=== PATIENT | male | born 1990 | race African-American/Black ===

== ENCOUNTER 2021-04-07 02:58 | Inpatient (IN) | payer OTHER, SELFPAY ==
[~2021-04-07 02:58] MED LIST: Calcium Chloride 1 GM/10 ML Abboject SYRINGE ONE; PHENYLEPHRINE-NS 100 MCG/ML 10 ML SYRINGE ONE; Rocuronium Bromide 10 MG/ML (10ML VIAL) ONE; Succinylcholine 200 MG/10 ml SYRINGE FS ONE; Vecuronium 10 MG VIAL ONE
[2021-04-07] MEDS ORDERED: CEFAZOLIN 1 GM VIAL ONE ×2 (03:03→03:06)
[2021-04-07] MEDS ORDERED: Sterile Water 10 ML ONE ×2 (03:03→03:07)
[2021-04-07] MEDS ORDERED: Ondansetron PF 4 MG/2 ML Vial ONE ×2 (03:06→03:25)
[2021-04-07] MEDS ORDERED: Boostrix 0.5 ML (Tdap) VIAL ONE (03:06)
[2021-04-07] MEDS ORDERED: Fentanyl 100 MCG/2 ML VIAL ONE (03:09)
[2021-04-07 03:21] LABS: #Basophils 0.1 thou/uL (0.0-0.2); #Eosinphils 0.2 thou/uL (0.0-0.7); #Monocytes 0.8 thou/uL (0.11-0.59); #Neutrophils 5.4 thou/uL (1.40-6.50); %Basophils 1.2 % (0.0-1.0); %Eosinophils 1.7 % (0.0-10.0); %Lymphocytes 43.2 % (21.0-51.0); %Monocytes 7.1 % (0.0-10.0); %Neutrophils 46.9 % (42.0-75.0); Hemoglobin 14.9 g/dL (14.0-18.0); Mean Corpuscular HGB CONC 32.7 g/dL (32.0-36.0); Mean Corpuscular Hemoglobin 28.2 pg (27.0-31.0); Mean Corpuscular Volume 86.3 fL (78.0-98.0); Mean Platelet Volume 7.5 fL (7.4-10.4); Platelet Count 203 thou/uL (130-400); RBC Distribution Width 13.5 % (11.5-14.5); Red Blood Cell (RBC) Count 5.26 mill/uL (4.70-6.10); White Blood Cell (WBC) Count 11.6 thou/uL (4.8-10.8)
[2021-04-07] MEDS ORDERED: Midazolam HCl 5 mg/5 ml Vial ONE (03:24)
[2021-04-07] MEDS ORDERED: Fentanyl 250 MCG/5 ML VIAL ONE (03:24)
[2021-04-07] MEDS ORDERED: Sodium Bicarb 50 MEQ/50 ML Abboject 8.4% SYRINGE ONE (03:25)
[2021-04-07] MEDS ORDERED: Calcium Chloride 1 GM/10 ML Abboject SYRINGE ONE (03:25)
[2021-04-07] MEDS ORDERED: Ketamine 50 MG/ML (10ML VIAL) ONE (03:25)
[2021-04-07] MEDS ORDERED: Norepinephrine 4 MG/4 ML VIAL ONE (03:25)
[2021-04-07] MEDS ORDERED: Phenylephrine 10 MG/ML VIAL ONE ×2 (03:25)
[2021-04-07 03:35] LABS: Prothrombin Time 13.7 sec (12.0-14.7)
[2021-04-07 03:37] LABS: PTT 22.7 sec (22.9-36.1)
[2021-04-07 03:40] LABS: ALT (SGPT) 13 U/L (8-55); AST (SGOT) 20 U/L (5-34); Albumin 3.9 g/dL (3.5-5.0); Alcohol 146 mg/dL (Less than 10); Alkaline Phosphatase 56 U/L (40-110); Anion Gap 18 mmol/L (10-20); BUN (Urea Nitrogen) 11 mg/dL (8.9-20.6); Bilirubin, Total 0.2 mg/dL (0.2-1.2); Calc. Creatinine Clearance 0 mL/min (70-130); Calcium 8.5 mg/dL (7.8-10.44); Carbon Dioxide 19 mmol/L (22-29); Chloride 103 mmol/L (98-107); Globulin 3.3 g/dL (2.4-3.5); Glucose 135 mg/dL (70-105); Lipase 28 U/L (8-78); Protein, Total 7.2 g/dL (6.0-8.3); Sodium 137 mmol/L (136-145)
[2021-04-07] MEDS ORDERED: Albumin 5% 500 ML ONE (04:03)
[2021-04-07 04:22] LABS: SARS-CoV-2 NAA Rapid Test Not Detected (NotDetected)
[2021-04-07] MEDS ORDERED: Sodium Chloride 0.9% 30 ML ONE (04:23)
[2021-04-07] MEDS ORDERED: Dextrose 5% in Water 1,000 ML IV PRN (06:05)
[2021-04-07] MEDS ORDERED: hydrALAZINE 20 MG/ML VIAL SLOW IVP PRN (06:05)
[2021-04-07] MEDS ORDERED: Rocuronium Bromide 50 MG/5 ML VIAL ONE (06:22)
[2021-04-07] MEDS ORDERED: Iothalamate Meglumine 60% 50 ML VIAL FS ONE ×2 (06:25→08:25)
[2021-04-07] MEDS ORDERED: Piperacillin/Tazobactam 3.375 GM in Sodium Chloride 0.9% 100 ML IVPB SCH ×2 (06:30→14:00)
[2021-04-07] MEDS ORDERED: Morphine 2 MG/ML VIAL SLOW IVP PRN (06:30)
[2021-04-07] MEDS ORDERED: DISCONTINUE PREVIOUS NARCOTIC PAIN MEDICATIONS AND BENZODIAZEPINES FS SCH (06:30)
[2021-04-07] MEDS ORDERED: Propofol BOLUS 1,000 MG/100 ML VIAL IV PRN (06:30)
[2021-04-07] MEDS ORDERED: Fentanyl BOLUS 250 ML IVPB PRN (06:30)
[2021-04-07] MEDS ORDERED: Vecuronium 10 MG VIAL ONE (08:13)
[2021-04-07] MEDS ORDERED: Sterile Water 0 ML ONE (08:37)
[2021-04-07] MEDS ORDERED: Fentanyl CADD 100 ML ONE ×2 (09:15→23:37)
[2021-04-07] MEDS: Fentanyl CADD 100 ML IV SCH (09:19)
[2021-04-07] MEDS: Propofol 1,000 MG/100 ML VIAL IV PRN ×4 (09:19→18:23)
[2021-04-07 09:59] LABS: Lactic Acid 4.8 mmol/L (0.5-2.2)
[2021-04-07] MEDS: Sodium Chloride 0.9% 1,000 ML IV SCH ×4 (10:29→23:53)
[2021-04-07 10:31] LABS: Amphetamine Not Detected (NotDetected); Bacteria/HPF None Seen HPF (None Seen); Barbiturates Screen Not Detected (NotDetected); Benzodiazepine Screen Not Detected (NotDetected); Bilirubin Negative (Negative); Blood, Urine 3+ (Negative); Clarity Turbid (Clear); Cocaine Metabolite Screen Not Detected (NotDetected); Glucose, Urine (Dipstick) Normal (Negative); Ketone, Urine Negative (Negative); Leukocyte Negative Leu/uL (Negative); Methadone Not Detected (NotDetected); Methamphetamine Not Detected (NotDetected); Nitrite Negative (Negative); Opiate Screen Not Detected (NotDetected); Oxycodone Screen Not Detected (NotDetected); Phencyclidine (PCP) Not Detected (NotDetected); Protein, Urine (Dipstick) 20 mg/dL (Neg-Trace); RBC/HPF Greater than 50 HPF (0-3); Specific Gravity, Urine 1.032 (1.002-1.036); Squamous Epithelial None Seen HPF (0-3); THC/Cannabinoid Screen Detected (NotDetected); Tricyclic Screen Not Detected (NotDetected); Urobilinogen Normal mg/dL (Less than 2)
[2021-04-07 10:59] LABS: Actual Bicarbonate (HCO3a) 22.6 mEq/L (22-28); Base Excess (BEa) -3.6 mEq/L (-2.0 to +3.0); CO2 Tension 44.8 mmHg (35.0-45.0); Calcium, Ionized (arterial) 1.11 mmol/L (1.12-1.30); Carboxyhemoglobin (COHb) 1.6 gm% (0.0-3.0); Hemoglobin (Hb) 16.1 g/dL (14.0-18.0); O2 Tension (PaO2), arterial 118.4 mmHg (80.0-100.0); Potassium - ABG Lab 4.02 mmol/L (3.70-5.30); pH, Arterial 7.32 (7.35-7.45)
[2021-04-07 11:02] LABS: Puncture Site LRA
[2021-04-07 11:18] LABS: Hemoglobin 15.8 g/dL (14.0-18.0); Mean Corpuscular HGB CONC 32.2 g/dL (32.0-36.0); Mean Corpuscular Hemoglobin 28.3 pg (27.0-31.0); Mean Corpuscular Volume 87.8 fL (78.0-98.0); Platelet Count 160 thou/uL (130-400); RBC Distribution Width 13.9 % (11.5-14.5); Red Blood Cell (RBC) Count 5.59 mill/uL (4.70-6.10); White Blood Cell (WBC) Count 2.4 thou/uL (4.8-10.8)
[2021-04-07 11:19] LABS: Band 24 % (5-11); Lymphocytes 47 % (21-51); MDiff Complete? YES; Metamyelocyte 1 % (0-0); Monocytes 3 % (0-10); Neutrophil 24 % (42-75); Reactive Lymphocytes 1 % (0-10)
[2021-04-07] MEDS ORDERED: Calcium Chloride 1 GM/10 ML Abboject SYRINGE IVP SCH (11:30)
[2021-04-07 11:38] LABS: Anion Gap 15 mmol/L (10-20); BUN (Urea Nitrogen) 11 mg/dL (8.9-20.6); Calc. Creatinine Clearance 0 mL/min (70-130); Calcium 8.8 mg/dL (7.8-10.44); Carbon Dioxide 20 mmol/L (22-29); Chloride 108 mmol/L (98-107); Glucose 108 mg/dL (70-105); Magnesium 1.7 mg/dL (1.6-2.6); Phosphorus 3.9 mg/dL (2.3-4.7); Potassium 4.3 mmol/L (3.5-5.1); Sodium 139 mmol/L (136-145)
[2021-04-07] MEDS ORDERED: Magnesium Sulfate 3 GM in Sodium Chloride 0.9% 100 ML IVPB SCH (12:00)
[2021-04-07 12:02] LABS: Hemoglobin 16.2 g/dL (14.0-18.0); Mean Corpuscular HGB CONC 32.4 g/dL (32.0-36.0); Mean Corpuscular Hemoglobin 28.3 pg (27.0-31.0); Mean Corpuscular Volume 87.4 fL (78.0-98.0); Mean Platelet Volume 7.6 fL (7.4-10.4); Platelet Count 158 thou/uL (130-400); Red Blood Cell (RBC) Count 5.71 mill/uL (4.70-6.10); White Blood Cell (WBC) Count 3.2 thou/uL (4.8-10.8)
[2021-04-07] MEDS: Piperacillin/Tazobactam 3.375 GM in Sodium Chloride 0.9% 100 ML IVPB SCH ×2 (12:29→20:40)
[2021-04-07] MEDS: Lorazepam 2 MG/ML VIAL SLOW IVP PRN ×2 (12:55→22:36)
[2021-04-07] MEDS: Famotidine/PF 20 mg/2ml Vial SLOW IVP SCH ×2 (13:00→20:40)
[2021-04-07] MEDS ORDERED: Acetaminophen 650 MG Suppository PR PRN (13:39)
[2021-04-07] MEDS: Potassium Chloride 20 MEQ in Premix Bag 1 BAG IVPB SCH ×2 (14:21→14:45)
[2021-04-07] MEDS ORDERED: Sodium Chloride 0.9% 500 ML IV SCH (16:30)
[2021-04-07] MEDS ORDERED: Sodium Chloride 0.9% 1,000 ML IV SCH ×3 (19:39→23:15)
[2021-04-07 20:17] LABS: Mean Corpuscular HGB CONC 31.6 g/dL (32.0-36.0); Mean Corpuscular Hemoglobin 27.9 pg (27.0-31.0); Mean Corpuscular Volume 88.3 fL (78.0-98.0); Mean Platelet Volume 8.2 fL (7.4-10.4); Platelet Count 132 thou/uL (130-400); RBC Distribution Width 14.2 % (11.5-14.5); Red Blood Cell (RBC) Count 5.38 mill/uL (4.70-6.10); White Blood Cell (WBC) Count 4.5 thou/uL (4.8-10.8)
[2021-04-07 20:23] LABS: Lactic Acid 3.6 mmol/L (0.5-2.2)
[2021-04-07 20:36] LABS: Anion Gap 14 mmol/L (10-20); BUN (Urea Nitrogen) 20 mg/dL (8.9-20.6); Calc. Creatinine Clearance 96 mL/min (70-130); Calcium 8.1 mg/dL (7.8-10.44); Carbon Dioxide 20 mmol/L (22-29); Chloride 113 mmol/L (98-107); Glucose 106 mg/dL (70-105); MDiff Complete? YES; Magnesium 2.2 mg/dL (1.6-2.6); Phosphorus 3.5 mg/dL (2.3-4.7); Potassium 4.6 mmol/L (3.5-5.1); Sodium 142 mmol/L (136-145)
[2021-04-07 20:37] LABS: Band 17 % (5-11); Lymphocytes 40 % (21-51); Monocytes 8 % (0-10); Neutrophil 35 % (42-75)
[2021-04-07] MEDS ORDERED: Sodium Phosphate 15 MMOL in Sodium Chloride 0.9% 250 ML 250 ML IVPB SCH (21:00)
[2021-04-07] MEDS ORDERED: Hydrocortisone Sod Succ/PF 100 mg/2 ml Vial IVP SCH (23:15)
[2021-04-07] MEDS ORDERED: Dexmedetomidine 1,000 MCG in Sodium Chloride 0.9% 250 ML 240 ML IVPB SCH (23:15)
[2021-04-08] MEDS: Fentanyl CADD 100 ML IV SCH ×3 (00:09→23:17)
[2021-04-08 01:24] LABS: Troponin I Less than 0.010 ng/mL (< 0.028)
[2021-04-08] MEDS ORDERED: Norepinephrine 8 MG/0.9% NS 250 ML ONE (03:00)
[2021-04-08] MEDS ORDERED: Sodium Chloride 0.9% 1,000 ML IV SCH ×2 (03:45→04:45)
[2021-04-08] MEDS: Sodium Chloride 0.9% 1,000 ML IV SCH ×3 (03:57→15:01)
[2021-04-08] MEDS: Piperacillin/Tazobactam 3.375 GM in Sodium Chloride 0.9% 100 ML IVPB SCH ×3 (04:47→21:17)
[2021-04-08] MEDS: Lorazepam 2 MG/ML VIAL SLOW IVP PRN (04:53)
[2021-04-08 05:17] LABS: Lactic Acid 4.7 mmol/L (0.5-2.2)
[2021-04-08 05:29] LABS: Anion Gap 13 mmol/L (10-20); BUN (Urea Nitrogen) 23 mg/dL (8.9-20.6); Calc. Creatinine Clearance 91 mL/min (70-130); Calcium 6.2 mg/dL (7.8-10.44); Carbon Dioxide 18 mmol/L (22-29); Chloride 115 mmol/L (98-107); Glucose 86 mg/dL (70-105); Magnesium 1.7 mg/dL (1.6-2.6); Potassium 6.9 mmol/L (3.5-5.1); Sodium 139 mmol/L (136-145)
[2021-04-08 05:32] LABS: CK (CPK) 4172 U/L (30-200)
[2021-04-08] MEDS ORDERED: Calcium Gluconate 4.6 MEQ in Sodium Chloride 0.9% 100 ML IVPB ONE (05:34)
[2021-04-08] MEDS ORDERED: Calcium Gluc 4.6 MEQ/10 ML (100 MG/ML) SLOW IVP SCH (05:45)
[2021-04-08] MEDS ORDERED: Insulin Regular 300 UNITS/3 ML VIAL IVP SCH (05:45)
[2021-04-08] MEDS ORDERED: Dextrose 50% Abboject 50 ML SYRINGE SLOW IVP SCH (05:45)
[2021-04-08] MEDS: Norepinephrine 8 MG/0.9% NS 250 ML IVPB SCH ×4 (06:10→19:09)
[2021-04-08 08:15] LABS: Band 37 % (5-11); Hemoglobin 11.3 g/dL (14.0-18.0); Lymphocytes 39 % (21-51); MDiff Complete? YES; Mean Corpuscular HGB CONC 30.4 g/dL (32.0-36.0); Mean Corpuscular Hemoglobin 27.5 pg (27.0-31.0); Mean Corpuscular Volume 90.4 fL (78.0-98.0); Mean Platelet Volume 8.4 fL (7.4-10.4); Metamyelocyte 6 % (0-0); Monocytes 2 % (0-10); Neutrophil 15 % (42-75); Platelet Count 102 thou/uL (130-400); Platelet Morphology Comment Appears Decreased; Reactive Lymphocytes 1 % (0-10); Red Blood Cell (RBC) Count 4.12 mill/uL (4.70-6.10); White Blood Cell (WBC) Count 6.2 thou/uL (4.8-10.8)
[2021-04-08] MEDS: Dextrose 50% Abboject 50 ML SYRINGE SLOW IVP PRN ×2 (08:20→16:29)
[2021-04-08 09:17] LABS: Anion Gap 12 mmol/L (10-20); BUN (Urea Nitrogen) 26 mg/dL (8.9-20.6); Calc. Creatinine Clearance 83 mL/min (70-130); Calcium 6.3 mg/dL (7.8-10.44); Carbon Dioxide 19 mmol/L (22-29); Chloride 114 mmol/L (98-107); Glucose 105 mg/dL (70-105); Magnesium 1.9 mg/dL (1.6-2.6); Phosphorus 3.1 mg/dL (2.3-4.7); Potassium 5.5 mmol/L (3.5-5.1); Sodium 139 mmol/L (136-145)
[2021-04-08] MEDS ORDERED: Iopamidol-370 76% 500 ML 1 ML ONE (09:30)
[2021-04-08] MEDS ORDERED: Fentanyl CADD 100 ML ONE ×2 (11:02→23:14)
[2021-04-08] MEDS: Famotidine/PF 20 mg/2ml Vial SLOW IVP SCH ×2 (11:04→21:17)
[2021-04-08] MEDS: Sodium Bicarbonate 150 MEQ in Dextrose 5% in Water 1,000 ML IV SCH ×2 (11:04→17:53)
[2021-04-08] MEDS ORDERED: Lidocaine 1% w/Epinephrine 1:100K 20 ML VIAL ONE ×2 (11:41→11:43)
[2021-04-08 12:57] LABS: Mean Corpuscular Hemoglobin 27.9 pg (27.0-31.0); Mean Platelet Volume 8.2 fL (7.4-10.4); Platelet Count 121 thou/uL (130-400); RBC Distribution Width 14.2 % (11.5-14.5); White Blood Cell (WBC) Count 5.4 thou/uL (4.8-10.8)
[2021-04-08 15:01] LABS: Actual Bicarbonate (HCO3a) 15.4 mEq/L (22-28); Base Excess (BEa) -10.5 mEq/L (-2.0 to +3.0); CO2 Tension 34.3 mmHg (35.0-45.0); Calcium, Ionized (arterial) 0.87 mmol/L (1.12-1.30); Carboxyhemoglobin (COHb) 0.4 gm% (0.0-3.0); Hemoglobin (Hb) 12.4 g/dL (14.0-18.0); O2 Tension (PaO2), arterial 64.4 mmHg (80.0-100.0); Potassium - ABG Lab 5.29 mmol/L (3.70-5.30); pH, Arterial 7.27 (7.35-7.45)
[2021-04-08] MEDS: Propofol 1,000 MG/100 ML VIAL IV PRN (15:01)
[2021-04-08 15:06] LABS: Puncture Site Arterial Line
[2021-04-08 15:07] LABS: ALV-art Gradient 427.475 mmHg (0-20)
[2021-04-08] MEDS ORDERED: Calcium Chloride 1 GM/10 ML Abboject SYRINGE IVP SCH (15:15)
[2021-04-08 20:04] LABS: Hemoglobin 11.6 g/dL (14.0-18.0); Mean Corpuscular Hemoglobin 27.8 pg (27.0-31.0); Mean Corpuscular Volume 89.6 fL (78.0-98.0); Mean Platelet Volume 8.2 fL (7.4-10.4); Platelet Count 108 thou/uL (130-400); RBC Distribution Width 14.1 % (11.5-14.5); Red Blood Cell (RBC) Count 4.18 mill/uL (4.70-6.10); White Blood Cell (WBC) Count 5.8 thou/uL (4.8-10.8)
[2021-04-08 20:19] LABS: Phosphorus 2.7 mg/dL (2.3-4.7)
[2021-04-08 20:20] LABS: Lactic Acid 2.7 mmol/L (0.5-2.2)
[2021-04-08 20:22] LABS: Band 72 % (5-11); Hypochromia SLIGHT = 6-15 cells (100X) (0-5/hpf); Lymphocytes 10 % (21-51); MDiff Complete? YES; Metamyelocyte 6 % (0-0); Monocytes 1 % (0-10); Myelocyte 1 % (0-0); Neutrophil 5 % (42-75); Platelet Morphology Comment Appears Decreased; Polychromasia SLIGHT = 2-3 cells (100X) (0-2/hpf); Reactive Lymphocytes 5 % (0-10); Toxic Granulation SLIGHT; Vacuoles SLIGHT
[2021-04-08 20:25] LABS: Anion Gap 11 mmol/L (10-20); BUN (Urea Nitrogen) 21 mg/dL (8.9-20.6); Calc. Creatinine Clearance 113 mL/min (70-130); Calcium 7.5 mg/dL (7.8-10.44); Carbon Dioxide 19 mmol/L (22-29); Chloride 112 mmol/L (98-107); Glucose 91 mg/dL (70-105); Magnesium 1.8 mg/dL (1.6-2.6); Potassium 4.4 mmol/L (3.5-5.1); Sodium 138 mmol/L (136-145)
[2021-04-08 20:46] LABS: CK (CPK) 8871 U/L (30-200)
[2021-04-08] MEDS: Heparin 5,000 UNITS/ML VIAL SC SCH (21:17)
[2021-04-09] MEDS: Norepinephrine 8 MG/0.9% NS 250 ML IVPB SCH ×4 (00:02→14:50)
[2021-04-09 04:07] LABS: INR-International Normal Ratio 1.8; PTT 56.5 sec (22.9-36.1); Prothrombin Time 20.9 sec (12.0-14.7)
[2021-04-09 04:12] LABS: Lactic Acid 2.7 mmol/L (0.5-2.2)
[2021-04-09 04:19] LABS: Chloride 111 mmol/L (98-107); Potassium 4.2 mmol/L (3.5-5.1); Sodium 141 mmol/L (136-145)
[2021-04-09 04:20] LABS: Calcium 6.5 mg/dL (7.8-10.44); Glucose 108 mg/dL (70-105)
[2021-04-09 04:22] LABS: Carbon Dioxide 24 mmol/L (22-29)
[2021-04-09 04:24] LABS: Calc. Creatinine Clearance 144 mL/min (70-130); Phosphorus 2.3 mg/dL (2.3-4.7)
[2021-04-09 04:25] LABS: BUN (Urea Nitrogen) 17 mg/dL (8.9-20.6)
[2021-04-09 04:26] LABS: Magnesium 1.8 mg/dL (1.6-2.6)
[2021-04-09 04:30] LABS: Anion Gap 10 mmol/L (10-20)
[2021-04-09] MEDS: Piperacillin/Tazobactam 3.375 GM in Sodium Chloride 0.9% 100 ML IVPB SCH ×3 (04:36→20:32)
[2021-04-09] MEDS: Sodium Bicarbonate 150 MEQ in Dextrose 5% in Water 1,000 ML IV SCH (04:37)
[2021-04-09 04:53] LABS: Band 67 % (5-11); Eosinophils 3 % (0-10); Hemoglobin 10.9 g/dL (14.0-18.0); Lymphocytes 13 % (21-51); MDiff Complete? YES; Mean Corpuscular HGB CONC 29.8 g/dL (32.0-36.0); Mean Corpuscular Hemoglobin 26.5 pg (27.0-31.0); Mean Corpuscular Volume 88.8 fL (78.0-98.0); Metamyelocyte 5 % (0-0); Monocytes 3 % (0-10); Neutrophil 9 % (42-75); Platelet Count 103 thou/uL (130-400); Platelet Morphology Comment Appears Decreased; Red Blood Cell (RBC) Count 4.12 mill/uL (4.70-6.10); Vacuoles SLIGHT; White Blood Cell (WBC) Count 5.7 thou/uL (4.8-10.8)
[2021-04-09 04:56] LABS: CK (CPK) 8123 U/L (30-200)
[2021-04-09 07:49] LABS: Actual Bicarbonate (HCO3a) 22.7 mEq/L (22-28); Base Excess (BEa) -2.7 mEq/L (-2.0 to +3.0); CO2 Tension 41.4 mmHg (35.0-45.0); Calcium, Ionized (arterial) 0.97 mmol/L (1.12-1.30); Carboxyhemoglobin (COHb) 0.4 gm% (0.0-3.0); Hemoglobin (Hb) 11.1 g/dL (14.0-18.0); O2 Tension (PaO2), arterial 140.3 mmHg (80.0-100.0); Potassium - ABG Lab 3.97 mmol/L (3.70-5.30); pH, Arterial 7.36 (7.35-7.45)
[2021-04-09 07:52] LABS: Puncture Site Arterial Line
[2021-04-09] MEDS ORDERED: Magnesium 2 GM/50 ML 2 GM in Premix Bag 1 BAG IVPB SCH (08:00)
[2021-04-09] MEDS ORDERED: Calcium Chloride 1 GM/10 ML Abboject SYRINGE IVP SCH ×2 (08:30→09:45)
[2021-04-09] MEDS: Famotidine/PF 20 mg/2ml Vial SLOW IVP SCH (08:52)
[2021-04-09] MEDS: Enoxaparin Sodium 40 MG/0.4 ML SYRINGE SC SCH (08:53)
[2021-04-09] MEDS ORDERED: Enoxaparin Sodium 40 MG/0.4 ML SYRINGE SC SCH (09:00)
[2021-04-09] MEDS: Propofol 1,000 MG/100 ML VIAL IV PRN (09:18)
[2021-04-09] MEDS: Heparin 5,000 UNITS/ML VIAL SC SCH (09:25)
[2021-04-09] MEDS: Vasopressin 20 UNIT, Admixture Fee 1 EACH in Sodium Chloride 0.9% 50 ML IV SCH ×2 (11:20→19:27)
[2021-04-09] MEDS ORDERED: Fentanyl CADD 100 ML ONE ×2 (12:04→22:19)
[2021-04-09] MEDS: Sodium Chloride 0.9% 1,000 ML IV SCH ×2 (12:18→22:47)
[2021-04-09] MEDS: Fentanyl CADD 100 ML IV SCH ×2 (12:25→22:30)
[2021-04-09] MEDS ORDERED: SODIUM CHLORIDE IVPB SCH (21:45)
[2021-04-09] MEDS ORDERED: DEXMEDETOMIDINE IVPB SCH (21:45)
[2021-04-09] MEDS ORDERED: NACL IVPB SCH (21:45)
[2021-04-09] MEDS: Pantoprazole 40 MG VIAL IVP SCH (21:46)
[2021-04-09] MEDS: Ondansetron PF 4 MG/2 ML Vial IVP PRN (21:46)
[2021-04-10] MEDS: Norepinephrine 8 MG/0.9% NS 250 ML IVPB SCH ×2 (02:20→16:37)
[2021-04-10] MEDS ORDERED: Sodium Chloride 0.9% 1,000 ML IV SCH (03:30)
[2021-04-10] MEDS: Piperacillin/Tazobactam 3.375 GM in Sodium Chloride 0.9% 100 ML IVPB SCH ×2 (04:19→11:17)
[2021-04-10 04:24] LABS: Magnesium 1.6 mg/dL (1.6-2.6); Phosphorus 2.2 mg/dL (2.3-4.7)
[2021-04-10] MEDS: Vasopressin 20 UNIT, Admixture Fee 1 EACH in Sodium Chloride 0.9% 50 ML IV SCH ×3 (04:30→21:37)
[2021-04-10 04:40] LABS: CK (CPK) 4597 U/L (30-200)
[2021-04-10 04:44] LABS: ALT (SGPT) 761 U/L (8-55); AST (SGOT) 606 U/L (5-34); Albumin 2.1 g/dL (3.5-5.0); Alkaline Phosphatase 33 U/L (40-110); Anion Gap 9 mmol/L (10-20); BUN (Urea Nitrogen) 11 mg/dL (8.9-20.6); Bilirubin, Total 1.2 mg/dL (0.2-1.2); Calc. Creatinine Clearance 220 mL/min (70-130); Carbon Dioxide 26 mmol/L (22-29); Chloride 110 mmol/L (98-107); Globulin 1.8 g/dL (2.4-3.5); Glucose 99 mg/dL (70-105); Protein, Total 3.9 g/dL (6.0-8.3); Sodium 141 mmol/L (136-145)
[2021-04-10 05:25] LABS: Band 20 % (5-11); Eosinophils 3 % (0-10); Hemoglobin 9.2 g/dL (14.0-18.0); Lymphocytes 26 % (21-51); MDiff Complete? YES; Mean Corpuscular HGB CONC 30.9 g/dL (32.0-36.0); Mean Corpuscular Hemoglobin 27.6 pg (27.0-31.0); Mean Corpuscular Volume 89.5 fL (78.0-98.0); Mean Platelet Volume 8.3 fL (7.4-10.4); Monocytes 2 % (0-10); Myelocyte 1 % (0-0); Neutrophil 47 % (42-75); Platelet Count 100 thou/uL (130-400); Platelet Morphology Comment Appears Decreased; RBC Distribution Width 13.6 % (11.5-14.5); Red Blood Cell (RBC) Count 3.33 mill/uL (4.70-6.10); White Blood Cell (WBC) Count 5.5 thou/uL (4.8-10.8)
[2021-04-10] MEDS ORDERED: Potassium Phosphate 30 MMOL, Magnesium Sulfate 3 GM in Sodium Chloride 0.9% 250 ML 250 ML IVPB SCH (08:00)
[2021-04-10 08:20] LABS: Base Excess (BEa) -1.1 mEq/L (-2.0 to +3.0); CO2 Tension 41.6 mmHg (35.0-45.0); Calcium, Ionized (arterial) 1.16 mmol/L (1.12-1.30); Hemoglobin (Hb) 11.4 g/dL (14.0-18.0); O2 Tension (PaO2), arterial 65.9 mmHg (80.0-100.0); pH, Arterial 7.38 (7.35-7.45)
[2021-04-10 08:21] LABS: Puncture Site Arterial Line
[2021-04-10] MEDS: Pantoprazole 40 MG VIAL IVP SCH ×2 (08:21→21:35)
[2021-04-10] MEDS: Enoxaparin Sodium 40 MG/0.4 ML SYRINGE SC SCH (08:22)
[2021-04-10] MEDS: Sodium Chloride 0.9% 1,000 ML IV SCH ×2 (08:23→17:42)
[2021-04-10] MEDS ORDERED: Fentanyl CADD 100 ML ONE ×2 (10:25→21:22)
[2021-04-10] MEDS: Fentanyl CADD 100 ML IV SCH ×2 (10:27→21:35)
[2021-04-10] MEDS ORDERED: Piperacillin/Tazobactam 3.375 GM in Sodium Chloride 0.9% 100 ML IVPB SCH ×2 (14:00→22:00)
[2021-04-10] MEDS ORDERED: Furosemide 20 MG/2 ML VIAL SLOW IVP SCH (14:00)
[2021-04-10] MEDS ORDERED: Piperacillin/Tazobactam 4.5 GM in Sodium Chloride 0.9% 100 ML IVPB SCH (18:00)
[2021-04-10] MEDS ORDERED: Fentanyl 100 MCG/2 ML VIAL ONE (21:21)
[2021-04-10] MEDS: Acetaminophen 500 MG TAB PO PRN (21:35)
[2021-04-10] MEDS: Piperacillin/Tazobactam 4.5 GM in Sodium Chloride 0.9% 100 ML IVPB SCH (23:56)
[2021-04-11 05:06] LABS: Lactic Acid 1.7 mmol/L (0.5-2.2)
[2021-04-11 05:12] LABS: INR-International Normal Ratio 1.2; PTT 38.4 sec (22.9-36.1); Prothrombin Time 15.7 sec (12.0-14.7)
[2021-04-11 05:26] LABS: Hemoglobin 9.1 g/dL (14.0-18.0); Mean Corpuscular HGB CONC 31.4 g/dL (32.0-36.0); Mean Corpuscular Hemoglobin 27.9 pg (27.0-31.0); Mean Platelet Volume 8.5 fL (7.4-10.4); Platelet Count 104 thou/uL (130-400); RBC Distribution Width 13.7 % (11.5-14.5); Red Blood Cell (RBC) Count 3.26 mill/uL (4.70-6.10); White Blood Cell (WBC) Count 6.4 thou/uL (4.8-10.8)
[2021-04-11 05:28] LABS: ALT (SGPT) 658 U/L (8-55); AST (SGOT) 395 U/L (5-34); Albumin 2.3 g/dL (3.5-5.0); Alkaline Phosphatase 36 U/L (40-110); Anion Gap 13 mmol/L (10-20); BUN (Urea Nitrogen) 11 mg/dL (8.9-20.6); Calc. Creatinine Clearance 256 mL/min (70-130); Calcium 7.6 mg/dL (7.8-10.44); Carbon Dioxide 25 mmol/L (22-29); Chloride 110 mmol/L (98-107); Globulin 2.2 g/dL (2.4-3.5); Glucose 101 mg/dL (70-105); Potassium 3.7 mmol/L (3.5-5.1); Protein, Total 4.5 g/dL (6.0-8.3); Sodium 144 mmol/L (136-145)
[2021-04-11] MEDS: Norepinephrine 8 MG/0.9% NS 250 ML IVPB SCH (05:36)
[2021-04-11] MEDS: Dexmedetomidine 1,000 MCG in Sodium Chloride 0.9% 250 ML 240 ML IVPB SCH ×2 (05:37→20:18)
[2021-04-11] MEDS: Sodium Chloride 0.9% 1,000 ML IV SCH ×2 (05:44→15:27)
[2021-04-11] MEDS ORDERED: Fentanyl CADD 100 ML ONE ×2 (06:18→19:06)
[2021-04-11] MEDS: Fentanyl CADD 100 ML IV SCH ×2 (06:21→19:09)
[2021-04-11] MEDS: Piperacillin/Tazobactam 4.5 GM in Sodium Chloride 0.9% 100 ML IVPB SCH ×3 (06:22→22:42)
[2021-04-11 06:37] LABS: Band 46 % (5-11); Eosinophils 2 % (0-10); Lymphocytes 9 % (21-51); MDiff Complete? YES; Monocytes 10 % (0-10); Myelocyte 1 % (0-0); Neutrophil 32 % (42-75); Nucleated RBC 1 % (0); Platelet Morphology Comment Appears Decreased
[2021-04-11 08:15] LABS: Actual Bicarbonate (HCO3a) 22.4 mEq/L (22-28); Base Excess (BEa) -1.5 mEq/L (-2.0 to +3.0); CO2 Tension 34.9 mmHg (35.0-45.0); Calcium, Ionized (arterial) 1.11 mmol/L (1.12-1.30); Carboxyhemoglobin (COHb) 0.6 gm% (0.0-3.0); Hemoglobin (Hb) 11.6 g/dL (14.0-18.0); O2 Tension (PaO2), arterial 63.3 mmHg (80.0-100.0); Potassium - ABG Lab 3.48 mmol/L (3.70-5.30); pH, Arterial 7.43 (7.35-7.45)
[2021-04-11 08:17] LABS: ALV-art Gradient 249.575 mmHg (0-20); Puncture Site RRA
[2021-04-11] MEDS: Vasopressin 20 UNIT, Admixture Fee 1 EACH in Sodium Chloride 0.9% 50 ML IV SCH (08:32)
[2021-04-11] MEDS: Enoxaparin Sodium 40 MG/0.4 ML SYRINGE SC SCH (08:50)
[2021-04-11] MEDS: Pantoprazole 40 MG VIAL IVP SCH ×2 (08:53→20:15)
[2021-04-11] MEDS ORDERED: Fluconazole In NaCl,Iso-Osm 400 MG in Premix Bag 1 BAG IVPB SCH (09:15)
[2021-04-11] MEDS ORDERED: Furosemide 20 MG/2 ML VIAL SLOW IVP SCH ×2 (09:30→18:00)
[2021-04-11] MEDS ORDERED: MD-Gastroview 120 ML BOT ONE (09:51)
[2021-04-11] MEDS ORDERED: Potassium Phosphate 30 MMOL in Sodium Chloride 0.9% 500 ML IVPB SCH (15:30)
[2021-04-11] MEDS: Acetaminophen 500 MG TAB PO PRN (20:28)
[2021-04-12] MEDS: Dexmedetomidine 1,000 MCG in Sodium Chloride 0.9% 250 ML 240 ML IVPB SCH ×4 (01:36→22:30)
[2021-04-12] MEDS ORDERED: Fentanyl CADD 100 ML ONE ×3 (02:45→21:58)
[2021-04-12] MEDS: Fentanyl CADD 100 ML IV SCH ×3 (03:14→22:10)
[2021-04-12 03:36] LABS: INR-International Normal Ratio 1.2; Prothrombin Time 15.3 sec (12.0-14.7)
[2021-04-12 03:37] LABS: PTT 36.4 sec (22.9-36.1)
[2021-04-12 03:52] LABS: Phosphorus 1.9 mg/dL (2.3-4.7)
[2021-04-12 04:06] LABS: ALT (SGPT) 420 U/L (8-55); AST (SGOT) 196 U/L (5-34); Albumin 2.2 g/dL (3.5-5.0); Alkaline Phosphatase 31 U/L (40-110); Anion Gap 13 mmol/L (10-20); BUN (Urea Nitrogen) 12 mg/dL (8.9-20.6); Bilirubin, Total 0.9 mg/dL (0.2-1.2); Calc. Creatinine Clearance 217 mL/min (70-130); Calcium 7.3 mg/dL (7.8-10.44); Carbon Dioxide 28 mmol/L (22-29); Chloride 112 mmol/L (98-107); Globulin 2.5 g/dL (2.4-3.5); Glucose 118 mg/dL (70-105); Potassium 3.2 mmol/L (3.5-5.1); Protein, Total 4.7 g/dL (6.0-8.3); Sodium 150 mmol/L (136-145)
[2021-04-12 04:26] LABS: Band 29 % (5-11); Hemoglobin 7.7 g/dL (14.0-18.0); Lymphocytes 28 % (21-51); MDiff Complete? YES; Mean Corpuscular Hemoglobin 28.5 pg (27.0-31.0); Mean Corpuscular Volume 89.1 fL (78.0-98.0); Mean Platelet Volume 9.3 fL (7.4-10.4); Monocytes 5 % (0-10); Neutrophil 38 % (42-75); Nucleated RBC 4 % (0); Platelet Count 124 thou/uL (130-400); Platelet Morphology Comment Appears Decreased; RBC Distribution Width 13.8 % (11.5-14.5); Red Blood Cell (RBC) Count 2.71 mill/uL (4.70-6.10); White Blood Cell (WBC) Count 9.7 thou/uL (4.8-10.8)
[2021-04-12] MEDS ORDERED: Potassium Phosphate 30 MMOL in Sodium Chloride 0.9% 250 ML 250 ML IVPB SCH ×2 (06:30→13:15)
[2021-04-12] MEDS: Acetaminophen 500 MG TAB PO PRN ×2 (07:34→14:00)
[2021-04-12] MEDS: Fluconazole In NaCl,Iso-Osm 200 MG in Premix Bag 1 BAG IVPB SCH (08:41)
[2021-04-12] MEDS: Piperacillin/Tazobactam 4.5 GM in Sodium Chloride 0.9% 100 ML IVPB SCH ×3 (08:43→21:12)
[2021-04-12] MEDS: Pantoprazole 40 MG VIAL IVP SCH ×2 (08:44→21:10)
[2021-04-12] MEDS ORDERED: Midazolam HCl 2 mg/2 ml Vial ONE (09:19)
[2021-04-12] MEDS ORDERED: Midazolam HCl 2 mg/2 ml Vial SLOW IVP SCH (09:30)
[2021-04-12] MEDS: Enoxaparin Sodium 40 MG/0.4 ML SYRINGE SC SCH (10:34)
[2021-04-12] MEDS ORDERED: Enoxaparin Sodium 30 MG/0.3 ML SYRINGE SC SCH (11:00)
[2021-04-12] MEDS: Diazepam 5 MG TAB PO SCH ×4 (11:48→18:47)
[2021-04-12] MEDS ORDERED: Midazolam HCl 2 mg/2 ml Vial SLOW IVP PRN ×2 (18:38→23:59)
[2021-04-12] MEDS ORDERED: Calcium Chloride 1 GM/10 ML Abboject SYRINGE IVP SCH (18:45)
[2021-04-12] MEDS ORDERED: Calcium Chloride 1 GM/10 ML Abboject SYRINGE ONE (19:14)
[2021-04-12 19:24] LABS: Anion Gap 15 mmol/L (10-20); BUN (Urea Nitrogen) 16 mg/dL (8.9-20.6); Calc. Creatinine Clearance 167 mL/min (70-130); Carbon Dioxide 25 mmol/L (22-29); Chloride 114 mmol/L (98-107); Glucose 109 mg/dL (70-105); Magnesium 2.1 mg/dL (1.6-2.6); Phosphorus 3.2 mg/dL (2.3-4.7); Potassium 3.2 mmol/L (3.5-5.1); Sodium 151 mmol/L (136-145)
[2021-04-12] MEDS ORDERED: Lactated Ringer's 500 ML IV SCH (19:30)
[2021-04-12] MEDS: Enoxaparin Sodium 30 MG/0.3 ML SYRINGE SC SCH (21:11)
[2021-04-13] MEDS: Diazepam 5 MG TAB PO SCH ×4 (00:37→19:09)
[2021-04-13] MEDS: Acetaminophen 500 MG TAB PO PRN (00:37)
[2021-04-13] MEDS ORDERED: Sodium Chloride 0.45% 500 ML IV SCH (01:15)
[2021-04-13] MEDS ORDERED: Sodium Chloride 0.45% 1,000 ML IV SCH (01:30)
[2021-04-13] MEDS ORDERED: Dextrose 5 %-0.45 % NaCl 1,000 ML IV SCH (01:30)
[2021-04-13] MEDS: Piperacillin/Tazobactam 4.5 GM in Sodium Chloride 0.9% 100 ML IVPB SCH (06:13)
[2021-04-13] MEDS ORDERED: Fentanyl CADD 100 ML ONE ×2 (06:49→16:17)
[2021-04-13] MEDS: Fentanyl CADD 100 ML IV SCH ×2 (06:51→16:28)
[2021-04-13 07:11] LABS: Anion Gap 12 mmol/L (10-20); BUN (Urea Nitrogen) 17 mg/dL (8.9-20.6); Calc. Creatinine Clearance 155 mL/min (70-130); Carbon Dioxide 27 mmol/L (22-29); Chloride 114 mmol/L (98-107); Glucose 99 mg/dL (70-105); Magnesium 2.2 mg/dL (1.6-2.6); Phosphorus 3.5 mg/dL (2.3-4.7); Potassium 3.2 mmol/L (3.5-5.1); Sodium 150 mmol/L (136-145)
[2021-04-13 07:30] LABS: Hemoglobin 8.4 g/dL (14.0-18.0); Mean Corpuscular HGB CONC 32.4 g/dL (32.0-36.0); Mean Corpuscular Volume 89.6 fL (78.0-98.0); Mean Platelet Volume 8.6 fL (7.4-10.4); Platelet Count 162 thou/uL (130-400); RBC Distribution Width 14.1 % (11.5-14.5); Red Blood Cell (RBC) Count 2.91 mill/uL (4.70-6.10); White Blood Cell (WBC) Count 11.2 thou/uL (4.8-10.8)
[2021-04-13] MEDS ORDERED: Potassium Phosphate 30 MMOL in Sodium Chloride 0.9% 500 ML IVPB SCH ×3 (07:30→20:45)
[2021-04-13] MEDS ORDERED: Potassium Phosphate 30 MMOL in Sodium Chloride 0.9% 250 ML 250 ML IVPB SCH ×3 (07:45→15:00)
[2021-04-13 08:00] LABS: Band 34 % (5-11); Lymphocytes 16 % (21-51); MDiff Complete? YES; Monocytes 10 % (0-10); Neutrophil 38 % (42-75); Platelet Morphology Comment Appears Adequate; Polychromasia SLIGHT = 2-3 cells (100X) (0-2/hpf); Reactive Lymphocytes 2 % (0-10)
[2021-04-13] MEDS: Dexmedetomidine 1,000 MCG in Sodium Chloride 0.9% 250 ML 240 ML IVPB SCH (08:11)
[2021-04-13] MEDS: Fluconazole In NaCl,Iso-Osm 200 MG in Premix Bag 1 BAG IVPB SCH (08:23)
[2021-04-13] MEDS: Enoxaparin Sodium 30 MG/0.3 ML SYRINGE SC SCH ×2 (08:24→21:30)
[2021-04-13] MEDS: Pantoprazole 40 MG VIAL IVP SCH ×2 (08:24→21:30)
[2021-04-13] MEDS ORDERED: Sodium Bicarbonate 150 MEQ in Dextrose 5% in Water 1,000 ML IV SCH ×2 (09:00→12:32)
[2021-04-13] MEDS ORDERED: Fluconazole In NaCl,Iso-Osm 200 MG in Premix Bag 1 BAG IVPB SCH (09:15)
[2021-04-13] MEDS: Acetylcysteine 20% 200 MG/ML 30 ML VIAL PO SCH ×3 (09:39→12:14)
[2021-04-13] MEDS: Sodium Bicarb 50 MEQ/50 ML Abboject 8.4% SYRINGE IVP SCH ×2 (09:40→12:13)
[2021-04-13] MEDS ORDERED: Iopamidol-370 76% 500 ML 1 ML ONE (10:11)
[2021-04-13] MEDS ORDERED: Iopamidol 370 76% 50 ML VIAL FS ONE (10:11)
[2021-04-13 11:36] LABS: Hemoglobin 7.8 g/dL (14.0-18.0); Mean Corpuscular HGB CONC 30.1 g/dL (32.0-36.0); Mean Corpuscular Hemoglobin 26.9 pg (27.0-31.0); Mean Corpuscular Volume 89.6 fL (78.0-98.0); Mean Platelet Volume 8.7 fL (7.4-10.4); Platelet Count 166 thou/uL (130-400); Red Blood Cell (RBC) Count 2.91 mill/uL (4.70-6.10); White Blood Cell (WBC) Count 12.2 thou/uL (4.8-10.8)
[2021-04-13 11:51] LABS: Lactic Acid 2.1 mmol/L (0.5-2.2)
[2021-04-13 11:57] LABS: ALT (SGPT) 237 U/L (8-55); AST (SGOT) 220 U/L (5-34); Albumin 2.1 g/dL (3.5-5.0); Alkaline Phosphatase 33 U/L (40-110); Bilirubin, Direct 0.4 mg/dL (0.1-0.3); Bilirubin, Total 0.8 mg/dL (0.2-1.2); Protein, Total 4.5 g/dL (6.0-8.3)
[2021-04-13] MEDS ORDERED: Sodium Bicarb 50 MEQ/50 ML Abboject 8.4% SYRINGE ONE (12:11)
[2021-04-13 12:21] LABS: Band 27 % (5-11); Dohle Bodies SLIGHT; Eosinophils 1 % (0-10); Hypochromia SLIGHT = 6-15 cells (100X) (0-5/hpf); Lymphocytes 13 % (21-51); MDiff Complete? YES; Monocytes 1 % (0-10); Neutrophil 57 % (42-75); Platelet Morphology Comment Appears Adequate; Polychromasia SLIGHT = 2-3 cells (100X) (0-2/hpf); Reactive Lymphocytes 1 % (0-10); Toxic Granulation SLIGHT; Vacuoles SLIGHT
[2021-04-13] MEDS: Fluconazole In NaCl,Iso-Osm 400 MG in Premix Bag 1 BAG IVPB SCH (12:27)
[2021-04-13] MEDS: Dexmedetomidine 1,000 MCG in Dextrose 5% in Water 240 ML IVPB SCH ×2 (13:21→19:21)
[2021-04-13] MEDS: Piperacillin/Tazobactam 4.5 GM in Dextrose 5% in Water 100 ML IVPB SCH ×2 (15:47→22:54)
[2021-04-13 20:32] LABS: Magnesium 2.2 mg/dL (1.6-2.6); Phosphorus 3.4 mg/dL (2.3-4.7)
[2021-04-13] MEDS ORDERED: Potassium Chloride 40 MEQ in Premix Bag 1 BAG IVPB SCH (20:45)
[2021-04-13] MEDS: Midazolam HCl 2 mg/2 ml Vial SLOW IVP PRN ×2 (21:00→23:02)
[2021-04-13 21:47] LABS: CK (CPK) 27696 U/L (30-200)
[2021-04-13] MEDS: Ondansetron PF 4 MG/2 ML Vial IVP PRN (23:02)
[2021-04-14] MEDS ORDERED: Hydrocortisone Sod Succ/PF 100 mg/2 ml Vial IVP SCH (00:30)
[2021-04-14] MEDS ORDERED: Calcium Chloride 1 GM/10 ML Abboject SYRINGE IVP SCH (00:30)
[2021-04-14] MEDS ORDERED: Fentanyl CADD 100 ML ONE ×3 (02:09→19:40)
[2021-04-14] MEDS: Fentanyl CADD 100 ML IV SCH ×3 (02:12→19:42)
[2021-04-14] MEDS ORDERED: Midazolam HCl 2 mg/2 ml Vial SLOW IVP SCH (03:00)
[2021-04-14] MEDS: Diazepam 5 MG TAB PO SCH ×5 (03:30→23:08)
[2021-04-14 04:19] LABS: Lactic Acid 1.8 mmol/L (0.5-2.2)
[2021-04-14 04:28] LABS: ALT (SGPT) 191 U/L (8-55); AST (SGOT) 257 U/L (5-34); Albumin 2.4 g/dL (3.5-5.0); Alkaline Phosphatase 30 U/L (40-110); Anion Gap 12 mmol/L (10-20); BUN (Urea Nitrogen) 18 mg/dL (8.9-20.6); Bilirubin, Total 0.8 mg/dL (0.2-1.2); Calc. Creatinine Clearance 135 mL/min (70-130); Calcium 6.4 mg/dL (7.8-10.44); Carbon Dioxide 31 mmol/L (22-29); Chloride 110 mmol/L (98-107); Globulin 2.6 g/dL (2.4-3.5); Glucose 139 mg/dL (70-105); Magnesium 2.2 mg/dL (1.6-2.6); Phosphorus 4.2 mg/dL (2.3-4.7); Potassium 3.5 mmol/L (3.5-5.1); Sodium 149 mmol/L (136-145)
[2021-04-14 04:37] LABS: Hemoglobin 7.8 g/dL (14.0-18.0); Mean Corpuscular HGB CONC 32.8 g/dL (32.0-36.0); Mean Corpuscular Hemoglobin 29.1 pg (27.0-31.0); Mean Corpuscular Volume 88.7 fL (78.0-98.0); Mean Platelet Volume 8.9 fL (7.4-10.4); Platelet Count 177 thou/uL (130-400); RBC Distribution Width 13.9 % (11.5-14.5); Red Blood Cell (RBC) Count 2.69 mill/uL (4.70-6.10)
[2021-04-14] MEDS ORDERED: Sodium Bicarbonate 150 MEQ in Dextrose 5% in Water 1,000 ML IV SCH (04:56)
[2021-04-14 05:02] LABS: Band 13 % (5-11); Lymphocytes 12 % (21-51); MDiff Complete? YES; Monocytes 7 % (0-10); Neutrophil 67 % (42-75); Platelet Morphology Comment Appears Adequate; RBC Morphology Normal; Reactive Lymphocytes 1 % (0-10)
[2021-04-14] MEDS: Hydrocortisone Sod Succ/PF 100 mg/2 ml Vial IVP SCH ×3 (06:07→21:59)
[2021-04-14] MEDS: Piperacillin/Tazobactam 4.5 GM in Dextrose 5% in Water 100 ML IVPB SCH ×3 (06:19→23:19)
[2021-04-14] MEDS: Insulin Regular 300 UNITS/3 ML VIAL SC PRN ×4 (08:15→20:13)
[2021-04-14] MEDS: Dexmedetomidine 1,000 MCG in Dextrose 5% in Water 240 ML IVPB SCH ×3 (09:26→21:09)
[2021-04-14] MEDS: Enoxaparin Sodium 30 MG/0.3 ML SYRINGE SC SCH ×2 (09:26→20:02)
[2021-04-14] MEDS: Fluconazole In NaCl,Iso-Osm 400 MG in Premix Bag 1 BAG IVPB SCH (09:27)
[2021-04-14] MEDS: Pantoprazole 40 MG VIAL IVP SCH ×2 (09:27→20:02)
[2021-04-14] MEDS ORDERED: Furosemide 20 MG/2 ML VIAL SLOW IVP SCH ×2 (09:33→19:00)
[2021-04-14] MEDS ORDERED: Potassium Chloride 40 MEQ in Premix Bag 1 BAG IVPB SCH ×2 (09:45→12:45)
[2021-04-14] MEDS: Dextrose 5% in Water 1,000 ML IV SCH (09:58)
[2021-04-14] MEDS: Metoclopramide HCl 10 MG/2 ML VIAL IVP SCH ×2 (14:51→22:00)
[2021-04-15] MEDS: Insulin Regular 300 UNITS/3 ML VIAL SC PRN (00:37)
[2021-04-15] MEDS: Dexmedetomidine 1,000 MCG in Dextrose 5% in Water 240 ML IVPB SCH ×4 (02:30→21:22)
[2021-04-15] MEDS ORDERED: Fentanyl CADD 100 ML ONE ×3 (04:37→22:05)
[2021-04-15] MEDS: Fentanyl CADD 100 ML IV SCH ×3 (04:40→22:08)
[2021-04-15] MEDS: Dextrose 5% in Water 1,000 ML IV SCH (04:41)
[2021-04-15 05:21] LABS: Band 1 % (5-11); Eosinophils 1 % (0-10); Hemoglobin 7.3 g/dL (14.0-18.0); Lymphocytes 12 % (21-51); MDiff Complete? YES; Mean Corpuscular HGB CONC 32.2 g/dL (32.0-36.0); Mean Corpuscular Hemoglobin 28.4 pg (27.0-31.0); Mean Corpuscular Volume 88.3 fL (78.0-98.0); Mean Platelet Volume 9.8 fL (7.4-10.4); Monocytes 3 % (0-10); Neutrophil 83 % (42-75); Platelet Count 185 thou/uL (130-400); Platelet Morphology Comment Appears Adequate; RBC Distribution Width 13.8 % (11.5-14.5); Red Blood Cell (RBC) Count 2.58 mill/uL (4.70-6.10); White Blood Cell (WBC) Count 12.5 thou/uL (4.8-10.8)
[2021-04-15 05:56] LABS: Anion Gap 12 mmol/L (10-20); BUN (Urea Nitrogen) 21 mg/dL (8.9-20.6); Calc. Creatinine Clearance 174 mL/min (70-130); Calcium 6.4 mg/dL (7.8-10.44); Carbon Dioxide 31 mmol/L (22-29); Chloride 106 mmol/L (98-107); Glucose 148 mg/dL (70-105); Magnesium 2.3 mg/dL (1.6-2.6); Phosphorus 2.8 mg/dL (2.3-4.7); Potassium 3.4 mmol/L (3.5-5.1); Sodium 146 mmol/L (136-145)
[2021-04-15] MEDS: Metoclopramide HCl 10 MG/2 ML VIAL IVP SCH ×3 (06:01→21:06)
[2021-04-15] MEDS: Hydrocortisone Sod Succ/PF 100 mg/2 ml Vial IVP SCH (06:01)
[2021-04-15] MEDS: Piperacillin/Tazobactam 4.5 GM in Dextrose 5% in Water 100 ML IVPB SCH ×3 (06:01→21:06)
[2021-04-15] MEDS: Diazepam 5 MG TAB PO SCH ×4 (06:04→17:37)
[2021-04-15 06:18] LABS: CK (CPK) 28619 U/L (30-200)
[2021-04-15] MEDS ORDERED: Potassium Phosphate 30 MMOL in Sodium Chloride 0.9% 500 ML IVPB SCH (08:15)
[2021-04-15] MEDS ORDERED: Potassium Chloride 40 MEQ in Premix Bag 1 BAG IVPB SCH (08:15)
[2021-04-15] MEDS: Enoxaparin Sodium 30 MG/0.3 ML SYRINGE SC SCH ×2 (09:00→20:59)
[2021-04-15] MEDS: Pantoprazole 40 MG VIAL IVP SCH ×2 (09:00→21:00)
[2021-04-15] MEDS: Fluconazole In NaCl,Iso-Osm 400 MG in Premix Bag 1 BAG IVPB SCH (09:00)
[2021-04-15] MEDS ORDERED: Potassium Phosphate 30 MMOL in Sodium Chloride 0.9% 250 ML 250 ML IVPB SCH (09:30)
[2021-04-15] MEDS ORDERED: Furosemide 20 MG/2 ML VIAL SLOW IVP SCH ×2 (11:30→18:00)
[2021-04-15 12:46] LABS: #Lymphocytes 1.3 thou/uL (1.20-3.40); #Monocytes 0.3 thou/uL (0.11-0.59); #Neutrophils 10.3 thou/uL (1.40-6.50); %Basophils 0.1 % (0.0-1.0); %Eosinophils 0.3 % (0.0-10.0); %Lymphocytes 10.5 % (21.0-51.0); %Monocytes 2.8 % (0.0-10.0); %Neutrophils 86.3 % (42.0-75.0); Hemoglobin 7.6 g/dL (14.0-18.0); Mean Corpuscular HGB CONC 32.3 g/dL (32.0-36.0); Mean Corpuscular Hemoglobin 28.3 pg (27.0-31.0); Mean Corpuscular Volume 87.9 fL (78.0-98.0); Mean Platelet Volume 9.3 fL (7.4-10.4); Platelet Count 218 thou/uL (130-400); RBC Distribution Width 13.9 % (11.5-14.5); Red Blood Cell (RBC) Count 2.66 mill/uL (4.70-6.10); White Blood Cell (WBC) Count 11.9 thou/uL (4.8-10.8)
[2021-04-15] MEDS: Midazolam HCl 2 mg/2 ml Vial SLOW IVP PRN (13:48)
[2021-04-15 17:54] LABS: Phosphorus 2.5 mg/dL (2.3-4.7)
[2021-04-15 17:56] LABS: Anion Gap 12 mmol/L (10-20); BUN (Urea Nitrogen) 22 mg/dL (8.9-20.6); Calc. Creatinine Clearance 184 mL/min (70-130); Calcium 6.3 mg/dL (7.8-10.44); Carbon Dioxide 27 mmol/L (22-29); Chloride 109 mmol/L (98-107); Glucose 117 mg/dL (70-105); Magnesium 2.2 mg/dL (1.6-2.6); Potassium 3.4 mmol/L (3.5-5.1); Sodium 145 mmol/L (136-145)
[2021-04-15] MEDS: Acetaminophen 500 MG TAB PO PRN (21:06)
[2021-04-16] MEDS: Diazepam 5 MG TAB PO SCH ×4 (01:37→17:17)
[2021-04-16] MEDS: Dexmedetomidine 1,000 MCG in Dextrose 5% in Water 240 ML IVPB SCH ×2 (03:46→20:00)
[2021-04-16 04:16] LABS: ALT (SGPT) 117 U/L (8-55); AST (SGOT) 200 U/L (5-34); Albumin 2.3 g/dL (3.5-5.0); Alkaline Phosphatase 30 U/L (40-110); Bilirubin, Direct 0.5 mg/dL (0.1-0.3); Protein, Total 5.8 g/dL (6.0-8.3)
[2021-04-16 04:29] LABS: Anion Gap 13 mmol/L (10-20); BUN (Urea Nitrogen) 24 mg/dL (8.9-20.6); Calc. Creatinine Clearance 139 mL/min (70-130); Calcium 6.4 mg/dL (7.8-10.44); Carbon Dioxide 26 mmol/L (22-29); Chloride 108 mmol/L (98-107); Glucose 106 mg/dL (70-105); Magnesium 2.2 mg/dL (1.6-2.6); Phosphorus 3.7 mg/dL (2.3-4.7); Potassium 3.4 mmol/L (3.5-5.1); Sodium 144 mmol/L (136-145)
[2021-04-16 04:43] LABS: CK (CPK) 23284 U/L (30-200)
[2021-04-16] MEDS: Midazolam HCl 2 mg/2 ml Vial SLOW IVP PRN (05:27)
[2021-04-16] MEDS ORDERED: Fentanyl CADD 100 ML ONE (05:36)
[2021-04-16] MEDS: Fentanyl CADD 100 ML IV SCH (05:37)
[2021-04-16] MEDS: Metoclopramide HCl 10 MG/2 ML VIAL IVP SCH ×2 (05:49→13:51)
[2021-04-16] MEDS: Piperacillin/Tazobactam 4.5 GM in Dextrose 5% in Water 100 ML IVPB SCH (06:10)
[2021-04-16] MEDS: Dextrose 5% in Water 1,000 ML IV SCH (06:35)
[2021-04-16] MEDS ORDERED: Potassium Phosphate 30 MMOL in Sodium Chloride 0.9% 250 ML 250 ML IVPB SCH (07:15)
[2021-04-16] MEDS ORDERED: Furosemide 20 MG/2 ML VIAL SLOW IVP SCH (09:00)
[2021-04-16] MEDS: Ferrous Sulfate 325 MG TAB PO SCH ×2 (09:13→21:39)
[2021-04-16] MEDS: Ascorbic Acid 500 mg Chewable Tablet PO SCH ×2 (09:13→21:39)
[2021-04-16] MEDS: Enoxaparin Sodium 30 MG/0.3 ML SYRINGE SC SCH ×2 (09:13→21:38)
[2021-04-16] MEDS: Furosemide 20 MG/2 ML VIAL SLOW IVP SCH (09:13)
[2021-04-16] MEDS: Pantoprazole 40 MG VIAL IVP SCH ×2 (09:33→21:39)
[2021-04-16] MEDS ORDERED: Morphine 2 MG/ML VIAL SLOW IVP PRN (18:02)
[2021-04-16] MEDS: Ondansetron PF 4 MG/2 ML Vial IVP PRN (20:00)
[2021-04-16] MEDS ORDERED: Diazepam 5 MG TAB PO SCH (21:30)
[2021-04-16] MEDS ORDERED: Lorazepam 2 MG/ML VIAL ONE (23:55)
[2021-04-16] MEDS ORDERED: Lorazepam 2 MG/ML VIAL SLOW IVP SCH (23:59)
[2021-04-17] MEDS: Diazepam 5 MG TAB PO SCH ×4 (00:07→19:41)
[2021-04-17] MEDS ORDERED: Hydrocortisone Sod Succ/PF 100 mg/2 ml Vial IVP SCH (00:45)
[2021-04-17] MEDS ORDERED: Calcium Chloride 1 GM/10 ML Abboject SYRINGE IVP SCH (00:45)
[2021-04-17] MEDS: Dextrose 5% in Water 1,000 ML IV SCH ×2 (00:51→22:31)
[2021-04-17 01:31] LABS: Anion Gap 13 mmol/L (10-20); BUN (Urea Nitrogen) 26 mg/dL (8.9-20.6); Calc. Creatinine Clearance 139 mL/min (70-130); Calcium 7.1 mg/dL (7.8-10.44); Carbon Dioxide 28 mmol/L (22-29); Chloride 107 mmol/L (98-107); Glucose 154 mg/dL (70-105); Magnesium 2.4 mg/dL (1.6-2.6); Phosphorus 3.2 mg/dL (2.3-4.7); Sodium 145 mmol/L (136-145)
[2021-04-17 02:00] LABS: Potassium 2.9 mmol/L (3.5-5.1)
[2021-04-17] MEDS ORDERED: Potassium Chloride 40 MEQ in Premix Bag 1 BAG IVPB SCH ×2 (02:15→06:00)
[2021-04-17] MEDS: Dexmedetomidine 1,000 MCG in Dextrose 5% in Water 240 ML IVPB SCH (04:49)
[2021-04-17] MEDS: Hydrocortisone Sod Succ/PF 100 mg/2 ml Vial IVP SCH ×3 (05:43→21:42)
[2021-04-17] MEDS ORDERED: Potassium Chloride 10 MEQ in Dextrose 5%-Lactated Ringers 1,000 ML IV SCH (06:00)
[2021-04-17 06:49] LABS: Anion Gap 13 mmol/L (10-20); BUN (Urea Nitrogen) 23 mg/dL (8.9-20.6); Calc. Creatinine Clearance 169 mL/min (70-130); Calcium 6.9 mg/dL (7.8-10.44); Carbon Dioxide 27 mmol/L (22-29); Chloride 107 mmol/L (98-107); Glucose 185 mg/dL (70-105); Magnesium 2.5 mg/dL (1.6-2.6); Phosphorus 3.6 mg/dL (2.3-4.7); Potassium 3.9 mmol/L (3.5-5.1); Sodium 143 mmol/L (136-145)
[2021-04-17 06:52] LABS: Band 13 % (5-11); Hemoglobin 8.3 g/dL (14.0-18.0); Hypochromia SLIGHT = 6-15 cells (100X) (0-5/hpf); Lymphocytes 15 % (21-51); MDiff Complete? YES; Mean Corpuscular HGB CONC 31.4 g/dL (32.0-36.0); Mean Corpuscular Hemoglobin 27.6 pg (27.0-31.0); Mean Corpuscular Volume 87.9 fL (78.0-98.0); Mean Platelet Volume 8.9 fL (7.4-10.4); Monocytes 8 % (0-10); Neutrophil 64 % (42-75); Platelet Count 299 thou/uL (130-400); Platelet Morphology Comment Appears Adequate; RBC Distribution Width 13.8 % (11.5-14.5); Red Blood Cell (RBC) Count 3.01 mill/uL (4.70-6.10); White Blood Cell (WBC) Count 16.9 thou/uL (4.8-10.8)
[2021-04-17 07:15] LABS: CK (CPK) 19904 U/L (30-200)
[2021-04-17] MEDS: Furosemide 20 MG/2 ML VIAL SLOW IVP SCH (09:54)
[2021-04-17] MEDS: Ascorbic Acid 500 mg Chewable Tablet PO SCH ×2 (09:55→21:40)
[2021-04-17] MEDS: Ferrous Sulfate 325 MG TAB PO SCH ×2 (09:57→21:40)
[2021-04-17] MEDS: Enoxaparin Sodium 30 MG/0.3 ML SYRINGE SC SCH ×2 (09:57→21:40)
[2021-04-17] MEDS: Pantoprazole 40 MG VIAL IVP SCH ×2 (09:57→21:42)
[2021-04-17] MEDS ORDERED: Fentanyl 250 MCG/5 ML VIAL ONE (10:37)
[2021-04-17] MEDS ORDERED: Midazolam HCl 2 mg/2 ml Vial ONE (10:50)
[2021-04-17] MEDS ORDERED: Rocuronium Bromide 10 MG/ML (10ML VIAL) ONE (11:25)
[2021-04-17] MEDS ORDERED: PHENYLEPHRINE-NS 100 MCG/ML 10 ML SYRINGE ONE (11:25)
[2021-04-17] MEDS ORDERED: PROPOFOL 200 MG/20 ML VIAL ONE (11:25)
[2021-04-17] MEDS ORDERED: ePHEDrine 50 MG/ML VIAL ONE (11:25)
[2021-04-17] MEDS ORDERED: Ondansetron PF 4 MG/2 ML Vial ONE (11:25)
[2021-04-17] MEDS ORDERED: SUGAMMADEX SODIUM 200 MG/2 ML VIAL ONE (12:34)
[2021-04-17 18:30] LABS: SARS-CoV-2 PCR by NAA Not Detected (NotDetected)
[2021-04-17] MEDS ORDERED: Haloperidol Lactate 5 MG/ML VIAL SLOW IVP SCH (22:30)
[2021-04-17] MEDS: Morphine 4 MG/ML VIAL SLOW IVP PRN (22:31)
[2021-04-17] MEDS: Sodium Chloride 0.9% 1,000 ML IV SCH (23:20)
[2021-04-18] MEDS: Diazepam 5 MG TAB PO SCH ×4 (00:12→18:03)
[2021-04-18] MEDS: Sodium Chloride 0.9% 1,000 ML IV SCH ×2 (04:27→13:01)
[2021-04-18] MEDS: Hydrocortisone Sod Succ/PF 100 mg/2 ml Vial IVP SCH ×3 (05:55→21:14)
[2021-04-18] MEDS: Enoxaparin Sodium 30 MG/0.3 ML SYRINGE SC SCH ×2 (08:14→21:14)
[2021-04-18] MEDS: Ferrous Sulfate 325 MG TAB PO SCH ×2 (08:14→21:14)
[2021-04-18] MEDS: Ascorbic Acid 500 mg Chewable Tablet PO SCH ×2 (08:14→21:13)
[2021-04-18] MEDS: Pantoprazole 40 MG VIAL IVP SCH ×2 (08:15→21:15)
[2021-04-18] MEDS: Morphine 4 MG/ML VIAL SLOW IVP PRN (08:15)
[2021-04-18] MEDS: Ondansetron PF 4 MG/2 ML Vial IVP PRN (08:22)
[2021-04-18 11:00] LABS: #Lymphocytes 1.1 thou/uL (1.20-3.40); #Monocytes 1.1 thou/uL (0.11-0.59); %Lymphocytes 6.9 % (21.0-51.0); %Neutrophils 86.1 % (42.0-75.0); Hemoglobin 8.7 g/dL (14.0-18.0); Mean Corpuscular HGB CONC 32.6 g/dL (32.0-36.0); Mean Platelet Volume 8.3 fL (7.4-10.4); Platelet Count 445 thou/uL (130-400); Red Blood Cell (RBC) Count 2.99 mill/uL (4.70-6.10); White Blood Cell (WBC) Count 16.2 thou/uL (4.8-10.8)
[2021-04-18 11:29] LABS: Anion Gap 13 mmol/L (10-20); BUN (Urea Nitrogen) 19 mg/dL (8.9-20.6); Calc. Creatinine Clearance 187 mL/min (70-130); Calcium 6.9 mg/dL (7.8-10.44); Carbon Dioxide 27 mmol/L (22-29); Chloride 111 mmol/L (98-107); Glucose 134 mg/dL (70-105); Magnesium 2.4 mg/dL (1.6-2.6); Phosphorus 1.9 mg/dL (2.3-4.7); Potassium 2.9 mmol/L (3.5-5.1); Sodium 148 mmol/L (136-145)
[2021-04-18 11:43] LABS: CK (CPK) 17172 U/L (30-200)
[2021-04-18] MEDS ORDERED: Potassium Chloride 20 MEQ TAB PO SCH (11:45)
[2021-04-18] MEDS: Acetaminophen/Codeine 30-300mg Tablet PO PRN ×2 (14:02→21:14)
[2021-04-19] MEDS: Diazepam 5 MG TAB PO SCH ×4 (00:02→17:16)
[2021-04-19] MEDS: Acetaminophen/Codeine 30-300mg Tablet PO PRN ×4 (02:53→22:09)
[2021-04-19 05:51] LABS: Anion Gap 11 mmol/L (10-20); BUN (Urea Nitrogen) 13 mg/dL (8.9-20.6); Calc. Creatinine Clearance 230 mL/min (70-130); Calcium 6.5 mg/dL (7.8-10.44); Carbon Dioxide 24 mmol/L (22-29); Chloride 111 mmol/L (98-107); Glucose 113 mg/dL (70-105); Magnesium 2.2 mg/dL (1.6-2.6); Phosphorus 2.2 mg/dL (2.3-4.7); Potassium 3.2 mmol/L (3.5-5.1); Sodium 143 mmol/L (136-145)
[2021-04-19] MEDS: Hydrocortisone Sod Succ/PF 100 mg/2 ml Vial IVP SCH (06:12)
[2021-04-19 06:16] LABS: CK (CPK) 14628 U/L (30-200)
[2021-04-19 06:38] VITALS: BMI 37.9
[2021-04-19 06:45] LABS: Hemoglobin 8.1 g/dL (14.0-18.0); Mean Corpuscular Hemoglobin 28.4 pg (27.0-31.0); Mean Corpuscular Volume 88.6 fL (78.0-98.0); Mean Platelet Volume 7.6 fL (7.4-10.4); Platelet Count 511 thou/uL (130-400); RBC Distribution Width 13.9 % (11.5-14.5); Red Blood Cell (RBC) Count 2.86 mill/uL (4.70-6.10); White Blood Cell (WBC) Count 11.6 thou/uL (4.8-10.8)
[2021-04-19 08:49] LABS: Band 16 % (5-11); Lymphocytes 10 % (21-51); MDiff Complete? YES; Monocytes 3 % (0-10); Neutrophil 71 % (42-75); Platelet Morphology Comment Appears Increased; Polychromasia SLIGHT = 2-3 cells (100X) (0-2/hpf)
[2021-04-19] MEDS ORDERED: Potassium Phosphate 30 MMOL in Sodium Chloride 0.9% 250 ML 250 ML IVPB SCH (09:00)
[2021-04-19] MEDS: Ascorbic Acid 500 mg Chewable Tablet PO SCH ×2 (09:09→22:07)
[2021-04-19] MEDS: Ferrous Sulfate 325 MG TAB PO SCH (09:09)
[2021-04-19] MEDS: Enoxaparin Sodium 30 MG/0.3 ML SYRINGE SC SCH (09:09)
[2021-04-19] MEDS: Pantoprazole 40 MG VIAL IVP SCH (09:10)
[2021-04-19] MEDS ORDERED: Sodium Bicarb 50 MEQ/50 ML Abboject 8.4% SYRINGE IVP PRN (09:47)
[2021-04-19] MEDS ORDERED: Acetylcysteine 20% 200 MG/ML 30 ML VIAL PO PRN (09:48)
[2021-04-19] MEDS ORDERED: Cefdinir 300 MG CAP PO SCH ×2 (10:15→21:00)
[2021-04-19 11:11] LABS: INR-International Normal Ratio 1.3; PTT 32.8 sec (22.9-36.1); Prothrombin Time 15.9 sec (12.0-14.7)
[2021-04-19] MEDS ORDERED: Iopamidol-370 76% 500 ML 1 ML ONE (11:30)
[2021-04-19] MEDS ORDERED: Acetaminophen 325 MG TAB PO PRN (16:08)
[2021-04-19] MEDS ORDERED: Ferrous Sulfate 325 MG TAB PO SCH (19:45)
[2021-04-19] MEDS: Apixaban 5 MG TAB PO SCH (22:07)
[2021-04-19] MEDS: Potassium Chloride 20 MEQ TAB PO SCH (22:07)
[2021-04-19] MEDS: Saccharomyces boulardii 250 MG CAP PO SCH (22:08)
[2021-04-19] MEDS: Cefdinir 300 MG CAP PO SCH (22:09)
[2021-04-20] MEDS: Acetaminophen/Codeine 30-300mg Tablet PO PRN (04:33)
[2021-04-20 06:11] LABS: Hemoglobin 7.9 g/dL (14.0-18.0); Mean Corpuscular HGB CONC 32.4 g/dL (32.0-36.0); Mean Corpuscular Hemoglobin 28.5 pg (27.0-31.0); Mean Corpuscular Volume 87.9 fL (78.0-98.0); Mean Platelet Volume 7.3 fL (7.4-10.4); Platelet Count 524 thou/uL (130-400); RBC Distribution Width 14.4 % (11.5-14.5); Red Blood Cell (RBC) Count 2.77 mill/uL (4.70-6.10); White Blood Cell (WBC) Count 9.8 thou/uL (4.8-10.8)
[2021-04-20 06:27] LABS: Anion Gap 13 mmol/L (10-20); BUN (Urea Nitrogen) 8 mg/dL (8.9-20.6); Calc. Creatinine Clearance 254 mL/min (70-130); Calcium 6.8 mg/dL (7.8-10.44); Carbon Dioxide 23 mmol/L (22-29); Chloride 112 mmol/L (98-107); Glucose 112 mg/dL (70-105); Phosphorus 2.1 mg/dL (2.3-4.7); Sodium 145 mmol/L (136-145)
[2021-04-20 06:52] LABS: Band 28 % (5-11); CK (CPK) 9548 U/L (30-200); Eosinophils 1 % (0-10); Lymphocytes 16 % (21-51); MDiff Complete? YES; Monocytes 10 % (0-10); Neutrophil 45 % (42-75); Nucleated RBC 3 % (0); Platelet Morphology Comment Appears Increased
[2021-04-20] MEDS: Ascorbic Acid 500 mg Chewable Tablet PO SCH ×2 (08:58→21:54)
[2021-04-20] MEDS: Apixaban 5 MG TAB PO SCH ×2 (08:58→21:54)
[2021-04-20] MEDS: Ferrous Sulfate 325 MG TAB PO SCH ×3 (08:58→21:56)
[2021-04-20] MEDS: Saccharomyces boulardii 250 MG CAP PO SCH ×2 (08:59→21:54)
[2021-04-20] MEDS ORDERED: Potassium Phosphate 30 MMOL in Sodium Chloride 0.9% 250 ML 250 ML IVPB SCH (09:00)
[2021-04-20] MEDS: Cefdinir 300 MG CAP PO SCH ×2 (09:02→23:01)
[2021-04-20] MEDS ORDERED: Morphine 4 MG/ML VIAL SLOW IVP SCH (11:00)
[2021-04-20] MEDS ORDERED: Morphine 4 MG/ML VIAL ONE (11:03)
[2021-04-20] MEDS: Sodium Chloride 0.9% 1,000 ML IV SCH ×2 (11:23→21:57)
[2021-04-20] MEDS ORDERED: Piperacillin/Tazobactam 3.375 GM in Sodium Chloride 0.9% 100 ML IVPB SCH ×2 (15:15→18:00)
[2021-04-20] MEDS ORDERED: Piperacillin/Tazobactam 3.375 GM VIAL ONE (16:27)
[2021-04-20] MEDS ORDERED: Sodium Chloride 0.9% 100 ML ONE (16:28)
[2021-04-20] MEDS ORDERED: Fentanyl 100 MCG/2 ML VIAL ONE (18:04)
[2021-04-20] MEDS ORDERED: Fentanyl 250 MCG/5 ML VIAL ONE (18:04)
[2021-04-20] MEDS ORDERED: Rocuronium Bromide 10 MG/ML (10ML VIAL) ONE (18:18)
[2021-04-20] MEDS ORDERED: PROPOFOL 200 MG/20 ML VIAL ONE (18:18)
[2021-04-20] MEDS ORDERED: Succinylcholine 200 MG/10 ml SYRINGE FS ONE (18:18)
[2021-04-20] MEDS ORDERED: Ondansetron PF 4 MG/2 ML Vial ONE (18:18)
[2021-04-20] MEDS ORDERED: Lidocaine 1% PF 5 ML VIAL ONE (18:18)
[2021-04-20] MEDS ORDERED: Glycopyrrolate 0.2 MG/ML 5 ML SYRINGE ONE (18:18)
[2021-04-20] MEDS ORDERED: Dexamethasone 20 MG/5 ML VIAL ONE (18:18)
[2021-04-20] MEDS ORDERED: Promethazine HCl 25 MG/ML VIAL IVPB PRN (19:16)
[2021-04-20] MEDS ORDERED: HYDROmorphone 2 MG/ML VIAL SLOW IVP PRN (19:16)
[2021-04-20] MEDS ORDERED: Promethazine HCl 25 MG/ML VIAL IM PRN (19:16)
[2021-04-20] MEDS ORDERED: HYDROmorphone 2 MG/ML VIAL ONE (19:22)
[2021-04-20] MEDS: Piperacillin/Tazobactam 3.375 GM in Sodium Chloride 0.9% 100 ML IVPB SCH (21:50)
[2021-04-20] MEDS: Potassium Chloride 20 MEQ TAB PO SCH (21:56)
[2021-04-21] MEDS: Sodium Chloride 0.9% 1,000 ML IV SCH ×3 (03:27→18:13)
[2021-04-21] MEDS: Piperacillin/Tazobactam 3.375 GM in Sodium Chloride 0.9% 100 ML IVPB SCH ×2 (03:40→12:30)
[2021-04-21] MEDS: Morphine 4 MG/ML VIAL SLOW IVP PRN ×2 (03:41→22:37)
[2021-04-21 07:26] LABS: CK (CPK) 5491 U/L (30-200)
[2021-04-21 07:29] LABS: Anion Gap 13 mmol/L (10-20); BUN (Urea Nitrogen) 12 mg/dL (8.9-20.6); Calc. Creatinine Clearance 257 mL/min (70-130); Carbon Dioxide 22 mmol/L (22-29); Chloride 111 mmol/L (98-107); Glucose 120 mg/dL (70-105); Magnesium 1.9 mg/dL (1.6-2.6); Phosphorus 2.9 mg/dL (2.3-4.7); Potassium 3.9 mmol/L (3.5-5.1); Sodium 142 mmol/L (136-145)
[2021-04-21 08:16] LABS: #Eosinphils 0.1 thou/uL (0.0-0.7); #Monocytes 0.5 thou/uL (0.11-0.59); #Neutrophils 6.7 thou/uL (1.40-6.50); %Basophils 0.1 % (0.0-1.0); %Eosinophils 0.7 % (0.0-10.0); %Lymphocytes 12.3 % (21.0-51.0); %Monocytes 5.5 % (0.0-10.0); %Neutrophils 81.4 % (42.0-75.0); Hemoglobin 8.4 g/dL (14.0-18.0); Mean Corpuscular HGB CONC 31.7 g/dL (32.0-36.0); Mean Corpuscular Hemoglobin 28.2 pg (27.0-31.0); Mean Platelet Volume 7.3 fL (7.4-10.4); Platelet Count 525 thou/uL (130-400); Red Blood Cell (RBC) Count 2.96 mill/uL (4.70-6.10); White Blood Cell (WBC) Count 8.3 thou/uL (4.8-10.8)
[2021-04-21] MEDS: Ferrous Sulfate 325 MG TAB PO SCH ×2 (08:44→20:01)
[2021-04-21] MEDS: Apixaban 5 MG TAB PO SCH ×2 (08:44→21:56)
[2021-04-21] MEDS: Ascorbic Acid 500 mg Chewable Tablet PO SCH ×2 (08:44→21:58)
[2021-04-21] MEDS: Saccharomyces boulardii 250 MG CAP PO SCH ×2 (08:44→21:57)
[2021-04-21] MEDS: Acetaminophen/Codeine 30-300mg Tablet PO PRN ×3 (08:56→22:02)
[2021-04-21] MEDS: Cefdinir 300 MG CAP PO SCH ×2 (11:09→21:58)
[2021-04-21] MEDS ORDERED: Cefepime 1 GM in Sodium Chloride 0.9% 100 ML IVPB SCH (16:00)
[2021-04-21] MEDS: Potassium Chloride 20 MEQ TAB PO SCH (21:57)
[2021-04-22] MEDS: Sodium Chloride 0.9% 1,000 ML IV SCH ×3 (02:28→18:48)
[2021-04-22] MEDS: traMADol HCl 50 MG TAB PO PRN ×2 (02:28→18:48)
[2021-04-22] MEDS ORDERED: Cefepime 1 GM in Sodium Chloride 0.9% 100 ML IVPB SCH (04:00)
[2021-04-22] MEDS: Cefepime 1 GM in Sodium Chloride 0.9% 100 ML IVPB SCH ×2 (04:09→15:14)
[2021-04-22] MEDS: Acetaminophen/Codeine 30-300mg Tablet PO PRN ×3 (05:32→21:27)
[2021-04-22] MEDS: Ondansetron PF 4 MG/2 ML Vial IVP PRN ×2 (05:38→19:42)
[2021-04-22] MEDS: Morphine 4 MG/ML VIAL SLOW IVP PRN ×4 (05:40→19:36)
[2021-04-22 06:57] LABS: #Eosinphils 0.1 thou/uL (0.0-0.7); #Lymphocytes 1.2 thou/uL (1.20-3.40); #Monocytes 0.8 thou/uL (0.11-0.59); #Neutrophils 6.8 thou/uL (1.40-6.50); %Basophils 0.4 % (0.0-1.0); %Eosinophils 1.3 % (0.0-10.0); %Lymphocytes 13.7 % (21.0-51.0); %Monocytes 9.3 % (0.0-10.0); %Neutrophils 75.3 % (42.0-75.0); Hemoglobin 7.9 g/dL (14.0-18.0); Mean Corpuscular HGB CONC 32.8 g/dL (32.0-36.0); Mean Corpuscular Hemoglobin 28.9 pg (27.0-31.0); Mean Corpuscular Volume 87.9 fL (78.0-98.0); Mean Platelet Volume 6.7 fL (7.4-10.4); Platelet Count 500 thou/uL (130-400); RBC Distribution Width 14.7 % (11.5-14.5); Red Blood Cell (RBC) Count 2.75 mill/uL (4.70-6.10)
[2021-04-22] MEDS ORDERED: Senokot S 8.6-50 MG TAB PO SCH (09:00)
[2021-04-22] MEDS: Ferrous Sulfate 325 MG TAB PO SCH ×2 (09:43→21:27)
[2021-04-22] MEDS: Ascorbic Acid 500 mg Chewable Tablet PO SCH ×2 (09:43→21:27)
[2021-04-22] MEDS: Apixaban 5 MG TAB PO SCH ×2 (09:43→21:26)
[2021-04-22] MEDS: Polyethylene Glycol 3350 17 GM Packet PO SCH (09:43)
[2021-04-22] MEDS: Saccharomyces boulardii 250 MG CAP PO SCH ×2 (09:43→21:27)
[2021-04-22] MEDS ORDERED: Lidocaine 4% Topical Sol 50 ML BOT TOP SCH (09:45)
[2021-04-22] MEDS: Senokot S 8.6-50 MG TAB PO SCH (21:27)
[2021-04-23] MEDS: Cefepime 1 GM in Sodium Chloride 0.9% 100 ML IVPB SCH ×2 (04:57→15:26)
[2021-04-23] MEDS: Sodium Chloride 0.9% 1,000 ML IV SCH ×3 (04:58→15:27)
[2021-04-23] MEDS: Acetaminophen/Codeine 30-300mg Tablet PO PRN ×2 (04:58→20:16)
[2021-04-23 06:37] LABS: #Eosinphils 0.1 thou/uL (0.0-0.7); #Lymphocytes 1.5 thou/uL (1.20-3.40); #Monocytes 1.5 thou/uL (0.11-0.59); #Neutrophils 7.1 thou/uL (1.40-6.50); %Basophils 0.2 % (0.0-1.0); %Eosinophils 0.9 % (0.0-10.0); %Lymphocytes 14.3 % (21.0-51.0); %Monocytes 14.4 % (0.0-10.0); %Neutrophils 70.2 % (42.0-75.0); Hemoglobin 8.3 g/dL (14.0-18.0); Mean Corpuscular HGB CONC 31.8 g/dL (32.0-36.0); Mean Corpuscular Hemoglobin 27.9 pg (27.0-31.0); Mean Corpuscular Volume 87.6 fL (78.0-98.0); Mean Platelet Volume 6.8 fL (7.4-10.4); Platelet Count 498 thou/uL (130-400); RBC Distribution Width 14.5 % (11.5-14.5); Red Blood Cell (RBC) Count 2.97 mill/uL (4.70-6.10); White Blood Cell (WBC) Count 9.6 thou/uL (4.8-10.8)
[2021-04-23] MEDS: Ascorbic Acid 500 mg Chewable Tablet PO SCH ×4 (08:23→20:25)
[2021-04-23] MEDS: Saccharomyces boulardii 250 MG CAP PO SCH ×2 (08:23→20:17)
[2021-04-23] MEDS: Ferrous Sulfate 325 MG TAB PO SCH ×2 (08:24→20:16)
[2021-04-23] MEDS: traMADol HCl 50 MG TAB PO PRN (08:24)
[2021-04-23] MEDS: Apixaban 5 MG TAB PO SCH ×2 (08:24→20:17)
[2021-04-23] MEDS: Senokot S 8.6-50 MG TAB PO SCH ×2 (08:28→20:16)
[2021-04-23] MEDS: Polyethylene Glycol 3350 17 GM Packet PO SCH (08:28)
[2021-04-23] MEDS: Morphine 4 MG/ML VIAL SLOW IVP PRN (08:50)
[2021-04-23] MEDS ORDERED: traMADol HCl 50 MG TAB PO SCH (10:00)
[2021-04-23] MEDS: traMADol HCl 50 MG TAB PO SCH ×3 (12:33→23:05)
[2021-04-23] MEDS: Ketorolac Tromethamine 30 MG/ML VIAL IVP SCH ×3 (12:34→23:04)
[2021-04-23] MEDS: metroNIDAZOLE 500 MG TAB PO SCH ×2 (15:27→20:16)
[2021-04-24] MEDS: traMADol HCl 50 MG TAB PO SCH ×5 (00:51→23:06)
[2021-04-24] MEDS: Ketorolac Tromethamine 30 MG/ML VIAL IVP SCH ×2 (04:59→17:43)
[2021-04-24] MEDS ORDERED: traMADol HCl 50 MG TAB ONE (05:03)
[2021-04-24] MEDS: Cefepime 1 GM in Sodium Chloride 0.9% 100 ML IVPB SCH ×2 (05:04→16:11)
[2021-04-24] MEDS: Ondansetron PF 4 MG/2 ML Vial IVP PRN (05:08)
[2021-04-24] MEDS ORDERED: Promethazine HCl 25 MG/ML VIAL IM PRN (06:28)
[2021-04-24] MEDS: Acetaminophen/Codeine 30-300mg Tablet PO PRN ×2 (09:59→16:10)
[2021-04-24] MEDS: Apixaban 5 MG TAB PO SCH ×2 (10:00→20:53)
[2021-04-24] MEDS: metroNIDAZOLE 500 MG TAB PO SCH ×3 (10:00→20:52)
[2021-04-24] MEDS: Ascorbic Acid 500 mg Chewable Tablet PO SCH ×2 (12:51→22:25)
[2021-04-24] MEDS: Polyethylene Glycol 3350 17 GM Packet PO SCH (12:51)
[2021-04-24] MEDS: Saccharomyces boulardii 250 MG CAP PO SCH ×2 (12:51→22:20)
[2021-04-24] MEDS: Ferrous Sulfate 325 MG TAB PO SCH ×2 (12:51→22:20)
[2021-04-24] MEDS: Senokot S 8.6-50 MG TAB PO SCH ×2 (12:51→22:20)
[2021-04-24] MEDS ORDERED: Magnesium Citrate 300 ML BOT PO SCH (14:00)
[2021-04-24 14:53] LABS: SARS-CoV-2 PCR by NAA Not Detected (NotDetected)
[2021-04-25] MEDS: traMADol HCl 50 MG TAB PO SCH ×3 (05:01→17:54)
[2021-04-25] MEDS: Cefepime 1 GM in Sodium Chloride 0.9% 100 ML IVPB SCH ×2 (05:02→15:33)
[2021-04-25] MEDS: Ondansetron PF 4 MG/2 ML Vial IVP PRN (05:09)
[2021-04-25 05:17] LABS: Hemoglobin 8.3 g/dL (14.0-18.0); Mean Corpuscular HGB CONC 32.1 g/dL (32.0-36.0); Mean Corpuscular Hemoglobin 27.3 pg (27.0-31.0); Mean Platelet Volume 6.7 fL (7.4-10.4); Platelet Count 434 thou/uL (130-400); Red Blood Cell (RBC) Count 3.03 mill/uL (4.70-6.10); White Blood Cell (WBC) Count 10.8 thou/uL (4.8-10.8)
[2021-04-25 05:26] LABS: Anion Gap 13 mmol/L (10-20); BUN (Urea Nitrogen) 6 mg/dL (8.9-20.6); CK (CPK) 657 U/L (30-200); Calc. Creatinine Clearance 316 mL/min (70-130); Calcium 7.8 mg/dL (7.8-10.44); Carbon Dioxide 25 mmol/L (22-29); Chloride 102 mmol/L (98-107); Glucose 87 mg/dL (70-105); Potassium 3.2 mmol/L (3.5-5.1); Sodium 137 mmol/L (136-145)
[2021-04-25 06:18] LABS: Band 29 % (5-11); Eosinophils 3 % (0-10); Lymphocytes 14 % (21-51); MDiff Complete? YES; Monocytes 10 % (0-10); Neutrophil 43 % (42-75)
[2021-04-25 07:53] LABS: Magnesium 1.6 mg/dL (1.6-2.6); Phosphorus 3.1 mg/dL (2.3-4.7)
[2021-04-25] MEDS: Saccharomyces boulardii 250 MG CAP PO SCH ×2 (08:38→20:50)
[2021-04-25] MEDS: Ferrous Sulfate 325 MG TAB PO SCH ×2 (08:38→20:49)
[2021-04-25] MEDS: metroNIDAZOLE 500 MG TAB PO SCH ×3 (08:38→20:50)
[2021-04-25] MEDS: Senokot S 8.6-50 MG TAB PO SCH ×2 (08:38→20:50)
[2021-04-25] MEDS: Potassium Chloride 20 MEQ in Premix Bag 1 BAG IVPB SCH ×2 (08:38→10:44)
[2021-04-25] MEDS: Ascorbic Acid 500 mg Chewable Tablet PO SCH ×2 (08:39→20:48)
[2021-04-25] MEDS: Apixaban 5 MG TAB PO SCH ×2 (08:39→20:48)
[2021-04-25] MEDS: Polyethylene Glycol 3350 17 GM Packet PO SCH (08:40)
[2021-04-25] MEDS ORDERED: Morphine 4 MG/ML VIAL ONE (10:41)
[2021-04-25] MEDS: Lidocaine 4% Topical Sol 50 ML BOT TOP PRN (10:44)
[2021-04-25] MEDS: Bacitracin 1 PK TOP SCH ×2 (15:33→20:49)
[2021-04-25] MEDS: Acetaminophen/Codeine 30-300mg Tablet PO PRN ×2 (15:35→20:53)
[2021-04-26] MEDS: traMADol HCl 50 MG TAB PO SCH ×6 (00:09→23:20)
[2021-04-26] MEDS: Cefepime 1 GM in Sodium Chloride 0.9% 100 ML IVPB SCH ×2 (03:51→15:17)
[2021-04-26] MEDS: Ondansetron PF 4 MG/2 ML Vial IVP PRN (05:59)
[2021-04-26] MEDS: Megestrol Acetate 40 MG TAB PO SCH (10:12)
[2021-04-26] MEDS: Bacitracin 1 PK TOP SCH ×3 (10:12→20:34)
[2021-04-26] MEDS: Polyethylene Glycol 3350 17 GM Packet PO SCH (10:13)
[2021-04-26] MEDS: Apixaban 5 MG TAB PO SCH ×2 (10:13→20:33)
[2021-04-26] MEDS: metroNIDAZOLE 500 MG TAB PO SCH ×3 (10:13→20:35)
[2021-04-26] MEDS: Senokot S 8.6-50 MG TAB PO SCH ×2 (10:13→20:35)
[2021-04-26] MEDS: Saccharomyces boulardii 250 MG CAP PO SCH ×2 (10:13→20:35)
[2021-04-26] MEDS: Ascorbic Acid 500 mg Chewable Tablet PO SCH ×2 (10:18→20:34)
[2021-04-26] MEDS: Ferrous Sulfate 325 MG TAB PO SCH ×2 (10:18→20:34)
[2021-04-27] MEDS: Cefepime 1 GM in Sodium Chloride 0.9% 100 ML IVPB SCH ×2 (03:35→17:00)
[2021-04-27] MEDS: traMADol HCl 50 MG TAB PO SCH ×3 (05:40→17:11)
[2021-04-27] MEDS: Bacitracin 1 PK TOP SCH ×3 (09:00→21:22)
[2021-04-27] MEDS: Morphine 4 MG/ML VIAL SLOW IVP PRN (10:19)
[2021-04-27] MEDS: Ferrous Sulfate 325 MG TAB PO SCH ×2 (10:22→21:23)
[2021-04-27] MEDS: Ascorbic Acid 500 mg Chewable Tablet PO SCH ×2 (10:22→21:22)
[2021-04-27] MEDS: Apixaban 5 MG TAB PO SCH ×2 (10:23→21:23)
[2021-04-27] MEDS: Saccharomyces boulardii 250 MG CAP PO SCH ×2 (10:23→21:22)
[2021-04-27] MEDS: metroNIDAZOLE 500 MG TAB PO SCH ×3 (10:23→21:23)
[2021-04-27] MEDS: Senokot S 8.6-50 MG TAB PO SCH ×2 (10:23→21:22)
[2021-04-27] MEDS: Polyethylene Glycol 3350 17 GM Packet PO SCH (10:24)
[2021-04-27] MEDS: Lidocaine 4% Topical Sol 50 ML BOT TOP PRN (10:31)
[2021-04-27] MEDS: Megestrol Acetate 40 MG TAB PO SCH (10:36)
[2021-04-27] MEDS: Acetaminophen/Codeine 30-300mg Tablet PO PRN ×2 (10:37→21:19)
[2021-04-27] MEDS: Lorazepam 1 MG TAB PO PRN (21:18)
[2021-04-28] MEDS: traMADol HCl 50 MG TAB PO SCH ×4 (00:10→18:21)
[2021-04-28] MEDS: Cefepime 1 GM in Sodium Chloride 0.9% 100 ML IVPB SCH ×2 (04:16→17:00)
[2021-04-28] MEDS: Megestrol Acetate 40 MG TAB PO SCH (09:00)
[2021-04-28] MEDS: Saccharomyces boulardii 250 MG CAP PO SCH ×2 (09:00→21:25)
[2021-04-28] MEDS: Morphine 4 MG/ML VIAL SLOW IVP PRN (09:22)
[2021-04-28] MEDS: Lorazepam 1 MG TAB PO PRN ×2 (09:29→13:12)
[2021-04-28] MEDS: Senokot S 8.6-50 MG TAB PO SCH ×2 (09:30→21:38)
[2021-04-28] MEDS: Apixaban 5 MG TAB PO SCH ×2 (09:30→21:30)
[2021-04-28] MEDS: metroNIDAZOLE 500 MG TAB PO SCH ×3 (09:32→21:25)
[2021-04-28] MEDS: Ferrous Sulfate 325 MG TAB PO SCH ×2 (09:32→21:25)
[2021-04-28] MEDS: Ascorbic Acid 500 mg Chewable Tablet PO SCH ×2 (09:33→21:38)
[2021-04-28] MEDS: Polyethylene Glycol 3350 17 GM Packet PO SCH (09:35)
[2021-04-28] MEDS: Bacitracin 1 PK TOP SCH ×3 (09:35→21:26)
[2021-04-28] MEDS: Acetaminophen/Codeine 30-300mg Tablet PO PRN ×2 (15:40→21:31)
[2021-04-28] MEDS: Ondansetron PF 4 MG/2 ML Vial IVP PRN (21:42)
[2021-04-29] MEDS: traMADol HCl 50 MG TAB PO SCH ×5 (00:55→18:27)
[2021-04-29] MEDS: Cefepime 1 GM in Sodium Chloride 0.9% 100 ML IVPB SCH ×2 (03:30→16:23)
[2021-04-29] MEDS: Ferrous Sulfate 325 MG TAB PO SCH ×3 (10:05→20:54)
[2021-04-29] MEDS: Megestrol Acetate 40 MG TAB PO SCH ×2 (10:05→10:22)
[2021-04-29] MEDS: Saccharomyces boulardii 250 MG CAP PO SCH ×2 (10:08→20:54)
[2021-04-29] MEDS: metroNIDAZOLE 500 MG TAB PO SCH ×3 (10:08→20:54)
[2021-04-29] MEDS: Bacitracin 1 PK TOP SCH ×3 (10:08→20:54)
[2021-04-29] MEDS: Apixaban 5 MG TAB PO SCH ×2 (10:08→20:54)
[2021-04-29] MEDS: Ascorbic Acid 500 mg Chewable Tablet PO SCH ×3 (10:08→20:54)
[2021-04-29] MEDS: Acetaminophen/Codeine 30-300mg Tablet PO PRN ×2 (10:08→20:53)
[2021-04-29] MEDS: Senokot S 8.6-50 MG TAB PO SCH ×2 (10:20→20:54)
[2021-04-29] MEDS: Polyethylene Glycol 3350 17 GM Packet PO SCH (10:20)
[2021-04-29] MEDS ORDERED: Iopamidol-370 76% 500 ML 1 ML ONE (10:48)
[2021-04-29] MEDS: Lorazepam 1 MG TAB PO PRN (20:59)
[2021-04-30] MEDS: traMADol HCl 50 MG TAB PO SCH ×5 (00:35→23:01)
[2021-04-30] MEDS: Cefepime 1 GM in Sodium Chloride 0.9% 100 ML IVPB SCH ×2 (04:20→17:27)
[2021-04-30 06:02] LABS: #Eosinphils 0.1 thou/uL (0.0-0.7); #Lymphocytes 1.2 thou/uL (1.20-3.40); #Monocytes 1.6 thou/uL (0.11-0.59); #Neutrophils 9.9 thou/uL (1.40-6.50); %Basophils 0.3 % (0.0-1.0); %Eosinophils 0.8 % (0.0-10.0); %Lymphocytes 9.6 % (21.0-51.0); %Monocytes 12.7 % (0.0-10.0); %Neutrophils 76.7 % (42.0-75.0); Hemoglobin 8.7 g/dL (14.0-18.0); Mean Corpuscular HGB CONC 32.6 g/dL (32.0-36.0); Mean Corpuscular Hemoglobin 27.4 pg (27.0-31.0); Mean Corpuscular Volume 83.9 fL (78.0-98.0); Mean Platelet Volume 7.1 fL (7.4-10.4); Platelet Count 297 thou/uL (130-400); RBC Distribution Width 14.2 % (11.5-14.5); Red Blood Cell (RBC) Count 3.16 mill/uL (4.70-6.10); White Blood Cell (WBC) Count 12.9 thou/uL (4.8-10.8)
[2021-04-30 06:19] LABS: Anion Gap 15 mmol/L (10-20); BUN (Urea Nitrogen) 5 mg/dL (8.9-20.6); Calc. Creatinine Clearance 321 mL/min (70-130); Calcium 8.2 mg/dL (7.8-10.44); Carbon Dioxide 23 mmol/L (22-29); Chloride 99 mmol/L (98-107); Glucose 82 mg/dL (70-105); Magnesium 1.7 mg/dL (1.6-2.6); Phosphorus 3.5 mg/dL (2.3-4.7); Potassium 3.4 mmol/L (3.5-5.1); Sodium 134 mmol/L (136-145)
[2021-04-30] MEDS: Ascorbic Acid 500 mg Chewable Tablet PO SCH ×3 (12:10→21:07)
[2021-04-30] MEDS: Ferrous Sulfate 325 MG TAB PO SCH ×2 (12:10→21:07)
[2021-04-30] MEDS: Apixaban 5 MG TAB PO SCH ×2 (12:11→21:07)
[2021-04-30] MEDS: Megestrol Acetate 40 MG TAB PO SCH (12:11)
[2021-04-30] MEDS: Senokot S 8.6-50 MG TAB PO SCH ×2 (12:11→21:08)
[2021-04-30] MEDS: Saccharomyces boulardii 250 MG CAP PO SCH ×2 (12:11→21:08)
[2021-04-30] MEDS: metroNIDAZOLE 500 MG TAB PO SCH ×3 (12:11→21:08)
[2021-04-30] MEDS: Bacitracin 1 PK TOP SCH ×3 (12:12→21:07)
[2021-04-30] MEDS: Polyethylene Glycol 3350 17 GM Packet PO SCH (12:12)
[2021-04-30 14:43] LABS: Band 18 % (5-11); Eosinophils 1 % (0-10); Lymphocytes 10 % (21-51); Monocytes 7 % (0-10)
[2021-04-30 14:45] LABS: Neutrophil 64 % (42-75); Polychromasia SLIGHT = 2-3 cells (100X) (0-2/hpf)
[2021-04-30 14:46] LABS: Platelet Morphology Comment Appears Adequate
[2021-05-01] MEDS: Cefepime 1 GM in Sodium Chloride 0.9% 100 ML IVPB SCH (03:21)
[2021-05-01] MEDS: traMADol HCl 50 MG TAB PO SCH ×4 (06:26→23:04)
[2021-05-01] MEDS: Saccharomyces boulardii 250 MG CAP PO SCH ×2 (09:51→20:51)
[2021-05-01] MEDS: Cefdinir 300 MG CAP PO SCH (09:51)
[2021-05-01] MEDS: Ferrous Sulfate 325 MG TAB PO SCH ×3 (09:52→20:50)
[2021-05-01] MEDS: Megestrol Acetate 40 MG TAB PO SCH ×2 (09:52→14:03)
[2021-05-01] MEDS: Bacitracin 1 PK TOP SCH ×3 (09:52→20:50)
[2021-05-01] MEDS: metroNIDAZOLE 500 MG TAB PO SCH ×3 (09:52→20:51)
[2021-05-01] MEDS: Polyethylene Glycol 3350 17 GM Packet PO SCH ×2 (09:52→14:03)
[2021-05-01] MEDS: Senokot S 8.6-50 MG TAB PO SCH ×4 (09:52→20:51)
[2021-05-01] MEDS: Ascorbic Acid 500 mg Chewable Tablet PO SCH ×2 (11:20→20:49)
[2021-05-01 14:22] LABS: Actual Bicarbonate (HCO3a) 17.3 mEq/L (22-28); Analyzer IN Cardio OR; Base Excess (BEa) -10.3 mEq/L (-2.0 to +3.0); CO2 Tension 44.3 mmHg (35.0-45.0); Calcium, Ionized (arterial) 1.11 mmol/L (1.12-1.30); Carboxyhemoglobin (COHb) 2.1 gm% (0.0-3.0); O2 Tension (PaO2), arterial 84.4 mmHg (80.0-100.0); Potassium - ABG Lab 3.58 mmol/L (3.70-5.30)
[2021-05-01 14:23] LABS: Analyzer IN Cardio OR; Base Excess (BEa) -7.8 mEq/L (-2.0 to +3.0); CO2 Tension 37.7 mmHg (35.0-45.0); Calcium, Ionized (arterial) 1.03 mmol/L (1.12-1.30); Carboxyhemoglobin (COHb) 2.6 gm% (0.0-3.0); Hemoglobin (Hb) 13.8 g/dL (14.0-18.0); O2 Tension (PaO2), arterial 73.1 mmHg (80.0-100.0); Potassium - ABG Lab 3.34 mmol/L (3.70-5.30)
[2021-05-01 14:24] LABS: Puncture Site Arterial Line
[2021-05-01 14:24] LABS: Puncture Site Arterial Line; pH, Arterial 7.21 (7.35-7.45)
[2021-05-01] MEDS ORDERED: Ondansetron ODT 4 MG TAB PO PRN (22:46)
[2021-05-02] MEDS: traMADol HCl 50 MG TAB PO SCH ×3 (06:02→17:45)
[2021-05-02] MEDS: Cefdinir 300 MG CAP PO SCH (10:14)
[2021-05-02] MEDS: Saccharomyces boulardii 250 MG CAP PO SCH ×2 (10:14→20:46)
[2021-05-02] MEDS: Bacitracin 1 PK TOP SCH ×3 (10:14→20:46)
[2021-05-02] MEDS: Ferrous Sulfate 325 MG TAB PO SCH ×2 (10:15→20:46)
[2021-05-02] MEDS: Ascorbic Acid 500 mg Chewable Tablet PO SCH ×2 (10:15→20:46)
[2021-05-02] MEDS: Polyethylene Glycol 3350 17 GM Packet PO SCH (10:16)
[2021-05-02] MEDS: metroNIDAZOLE 500 MG TAB PO SCH ×3 (10:16→20:46)
[2021-05-02] MEDS: Megestrol Acetate 40 MG TAB PO SCH (10:16)
[2021-05-02] MEDS: Senokot S 8.6-50 MG TAB PO SCH ×2 (10:16→20:46)
[2021-05-02 12:51] LABS: #Lymphocytes 1.2 thou/uL (1.20-3.40); #Monocytes 1.6 thou/uL (0.11-0.59); #Neutrophils 10.3 thou/uL (1.40-6.50); %Basophils 0.2 % (0.0-1.0); %Eosinophils 0.3 % (0.0-10.0); %Lymphocytes 9.1 % (21.0-51.0); %Monocytes 12.2 % (0.0-10.0); %Neutrophils 78.2 % (42.0-75.0); Hemoglobin 9.3 g/dL (14.0-18.0); Mean Corpuscular HGB CONC 32.1 g/dL (32.0-36.0); Mean Corpuscular Hemoglobin 26.6 pg (27.0-31.0); Mean Corpuscular Volume 82.7 fL (78.0-98.0); Mean Platelet Volume 7.1 fL (7.4-10.4); Platelet Count 312 thou/uL (130-400); RBC Distribution Width 14.3 % (11.5-14.5); Red Blood Cell (RBC) Count 3.51 mill/uL (4.70-6.10); White Blood Cell (WBC) Count 13.2 thou/uL (4.8-10.8)
[2021-05-02] MEDS: Acetaminophen/Codeine 30-300mg Tablet PO PRN (20:46)
[2021-05-02 22:20] LABS: SARS-CoV-2 PCR by NAA Not Detected (NotDetected)
[2021-05-03] MEDS: traMADol HCl 50 MG TAB PO SCH ×3 (00:07→12:17)
[2021-05-03 07:23] LABS: #Eosinphils 0.1 thou/uL (0.0-0.7); #Lymphocytes 1.7 thou/uL (1.20-3.40); #Monocytes 1.6 thou/uL (0.11-0.59); #Neutrophils 8.1 thou/uL (1.40-6.50); %Basophils 0.1 % (0.0-1.0); %Eosinophils 0.7 % (0.0-10.0); %Lymphocytes 14.5 % (21.0-51.0); %Monocytes 13.8 % (0.0-10.0); %Neutrophils 70.9 % (42.0-75.0); Hemoglobin 8.9 g/dL (14.0-18.0); Mean Corpuscular Hemoglobin 26.6 pg (27.0-31.0); Mean Corpuscular Volume 83.2 fL (78.0-98.0); Mean Platelet Volume 7.3 fL (7.4-10.4); Platelet Count 293 thou/uL (130-400); RBC Distribution Width 14.4 % (11.5-14.5); Red Blood Cell (RBC) Count 3.33 mill/uL (4.70-6.10); White Blood Cell (WBC) Count 11.4 thou/uL (4.8-10.8)
[2021-05-03] MEDS ORDERED: Midazolam HCl 2 mg/2 ml Vial ONE (09:17)
[2021-05-03] MEDS ORDERED: Sodium Bicarbonate 2.5 MEQ/5 ML VIAL ONE (09:18)
[2021-05-03] MEDS ORDERED: Fentanyl 100 MCG/2 ML VIAL ONE (09:18)
[2021-05-03] MEDS: Ascorbic Acid 500 mg Chewable Tablet PO SCH (11:24)
[2021-05-03] MEDS: Bacitracin 1 PK TOP SCH (11:24)
[2021-05-03] MEDS: Cefdinir 300 MG CAP PO SCH (11:25)
[2021-05-03] MEDS: metroNIDAZOLE 500 MG TAB PO SCH (11:25)
[2021-05-03] MEDS: Polyethylene Glycol 3350 17 GM Packet PO SCH (11:25)
[2021-05-03] MEDS: Senokot S 8.6-50 MG TAB PO SCH (11:25)
[2021-05-03] MEDS: Saccharomyces boulardii 250 MG CAP PO SCH (11:25)
[2021-05-03] MEDS: Megestrol Acetate 40 MG TAB PO SCH (11:25)
[2021-05-03] MEDS: Ferrous Sulfate 325 MG TAB PO SCH (11:25)
[2021-05-03] MEDS: Ketorolac Tromethamine 30 MG/ML VIAL IVP SCH ×2 (12:18→12:19)
[2021-05-03] MEDS ORDERED: traMADol HCl 50 MG TAB PO SCH (12:30)
[2021-05-03 12:36] LABS: Body Fluid Source Abscess Fluid; Clarity Cloudy/Turbid (Clear); Tube # EDTA
[2021-05-03 12:37] LABS: BF Color Brown
[2021-05-03 13:28] LABS: Anion Gap 19 mmol/L (10-20); BUN (Urea Nitrogen) 7 mg/dL (8.9-20.6); Calc. Creatinine Clearance 282 mL/min (70-130); Calcium 8.1 mg/dL (7.8-10.44); Carbon Dioxide 18 mmol/L (22-29); Chloride 101 mmol/L (98-107); Glucose 67 mg/dL (70-105); Potassium 4.3 mmol/L (3.5-5.1); Sodium 134 mmol/L (136-145)
[2021-05-03 16:02] VITALS: BP 132/102; TEMP 99.2
== END 2021-05-03 16:35 | disposition home or self-care (01) | DRG 957 ==
LOC: EEVIPCON 02:58 → ERS 02:58 → SDC 03:59 → EEVIPCON 06:05 → CCU 06:05 → SURG A 04-18 09:58
PROVIDERS: ADMIT Surgery; ATTEND Surgery
PROC: 0DTF0ZZ Resection of Right Large Intestine, Open Approach (ICD-10-PCS; principal; 2021-04-07)
PROC: 0DB80ZZ Excision of Small Intestine, Open Approach (ICD-10-PCS; 2021-04-07)
PROC: 0DQ80ZZ Repair Small Intestine, Open Approach (ICD-10-PCS; 2021-04-07)
PROC: 0WBH0ZZ Excision of Retroperitoneum, Open Approach (ICD-10-PCS; 2021-04-07)
PROC: 0VS Male Reproductive System, Reposition (ICD-10-PCS; 2021-04-07)
PROC: 30233N1 Transfusion of Nonautologous Red Blood Cells into Peripheral Vein, Percutaneous Approach (ICD-10-PCS; 2021-04-07)
PROC: 0W9930Z Drainage of Right Pleural Cavity with Drainage Device, Percutaneous Approach (ICD-10-PCS; 2021-04-07)
PROC: 02HV33Z Insertion of Infusion Device into Superior Vena Cava, Percutaneous Approach (ICD-10-PCS; 2021-04-07)
PROC: 5A1955Z Respiratory Ventilation, Greater than 96 Consecutive Hours (ICD-10-PCS; 2021-04-07)
PROC: 0T9B8ZZ Drainage of Bladder, Via Natural or Artificial Opening Endoscopic (ICD-10-PCS; 2021-04-07)
PROC: BT14ZZZ Fluoroscopy of Kidneys, Ureters and Bladder (ICD-10-PCS; 2021-04-07)
PROC: 0W9930Z Drainage of Right Pleural Cavity with Drainage Device, Percutaneous Approach (ICD-10-PCS; 2021-04-08)
PROC: 3E033XZ Introduction of Vasopressor into Peripheral Vein, Percutaneous Approach (ICD-10-PCS; 2021-04-08)
PROC: 0WQF0ZZ Repair Abdominal Wall, Open Approach (ICD-10-PCS; 2021-04-17)
PROC: 0W9F0ZZ Drainage of Abdominal Wall, Open Approach (ICD-10-PCS; 2021-04-17)
PROC: 0JB80ZZ Excision of Abdomen Subcutaneous Tissue and Fascia, Open Approach (ICD-10-PCS; 2021-04-20)
PROC: 0W9J3ZZ Drainage of Pelvic Cavity, Percutaneous Approach (ICD-10-PCS; 2021-05-03)
DX: S36.590A Other injury of ascending [right] colon, initial encounter (principal); S27.1XXA Traumatic hemothorax, initial encounter; T79.4XXA Traumatic shock, initial encounter; J96.00 Acute respiratory failure, unspecified whether with hypoxia or hypercapnia; A41.9 Sepsis, unspecified organism; R65.21 Severe sepsis with septic shock; D65 Disseminated intravascular coagulation [defibrination syndrome]; K65.8 Other peritonitis; S32.048A Other fracture of fourth lumbar vertebra, initial encounter for closed fracture; N17.9 Acute kidney failure, unspecified; S27.321A Contusion of lung, unilateral, initial encounter; S36.892A Contusion of other intra-abdominal organs, initial encounter; S27.0XXA Traumatic pneumothorax, initial encounter; D62 Acute posthemorrhagic anemia; S27.892A Contusion of other specified intrathoracic organs, initial encounter; E87.2 Acidosis; E87.0 Hyperosmolality and hypernatremia; L02.211 Cutaneous abscess of abdominal wall; J98.11 Atelectasis; T79.6XXA Traumatic ischemia of muscle, initial encounter; Z20.822 Contact with and (suspected) exposure to COVID-19; S41.132A Puncture wound without foreign body of left upper arm, initial encounter; S31.130A Puncture wound of abdominal wall without foreign body, right upper quadrant without penetration into peritoneal cavity, initial encounter; S31.33XA Puncture wound without foreign body of scrotum and testes, initial encounter; S71.132A Puncture wound without foreign body, left thigh, initial encounter; S71.131A Puncture wound without foreign body, right thigh, initial encounter; S01.83XA Puncture wound without foreign body of other part of head, initial encounter; S31.823A Puncture wound without foreign body of left buttock, initial encounter; N18.30 Chronic kidney disease, stage 3 unspecified; E78.5 Hyperlipidemia, unspecified; W34.00XA Accidental discharge from unspecified firearms or gun, initial encounter; E87.5 Hyperkalemia; E83.51 Hypocalcemia; E83.42 Hypomagnesemia; D70.8 Other neutropenia; E83.39 Other disorders of phosphorus metabolism; R74.01 Elevation of levels of liver transaminase levels; K43.9 Ventral hernia without obstruction or gangrene; H47.012 Ischemic optic neuropathy, left eye
CPT/HCPCS: 36415; 36416; 36430; 36600; 49020; 70450; 70486; 70496; 70498; 71045; 71275; 72141; 72170; 74018; 74177; 74250; 74420; 75635; 77002; 80048; 80053; 80076; 80306; 80307; 81003; 81015; 82533; 82550; 82570; 82805; 83605; 83690; 83735; 84100; 84145; 84484; 85007; 85025; 85027; 85060; 85384; 85610; 85730; 86850; 86900; 86901; 87040; 87070; 87076; 87077; 87086; 87186; 87205; 87324; 87449; 88307; 89051; 90471; 90715; 93005; 93010; 93306; 93923; 94002; 94003; 94640; 96374; 96375; 96376; C1729; C1751; C9113; G0390; J0132; J0690; J0692; J0780; J1100; J1170; J1450; J1630; J1644; J1650; J1720; J1815; J1885; J1940; J2001; J2060; J2250; J2270; J2370; J2405; J2543; J2550; J2704; J2765; J3010; J3475; J3480; J3490; J7030; J7042; J7050; J7070; J7120; J7620; P9016; P9045; Q0162; Q9961; Q9963; Q9967; S0028; S0179; U0002; U0003; U0005

== ENCOUNTER 2021-05-04 09:50 | Day surgery (SDC) | payer OTHER ==
[2021-05-04] MEDS ORDERED: Iopamidol 300 61% 50 ML VIAL FS ONE (10:58)
[2021-05-04] MEDS ORDERED: Fentanyl 100 MCG/2 ML VIAL ONE (11:46)
[2021-05-04 11:50] VITALS: BP 143/91; TEMP 98.2
[2021-05-04] MEDS ORDERED: FLU VACC QS2021-22(6MOS UP)/PF 60 MCG/0.5 ML SYRINGE IM ONE (12:15)
== END 2021-05-04 13:40 | disposition home or self-care (01) ==
LOC: SPEC 09:50
PROVIDERS: ATTEND Surgery
PROC: 0W9J30Z Drainage of Pelvic Cavity with Drainage Device, Percutaneous Approach (ICD-10-PCS; principal; 2021-05-04)
DX: K65.1 Peritoneal abscess (principal); T85.638A Leakage of other specified internal prosthetic devices, implants and grafts, initial encounter; Z79.01 Long term (current) use of anticoagulants; Z79.2 Long term (current) use of antibiotics; Z79.899 Other long term (current) drug therapy; Y81.8 Miscellaneous general- and plastic-surgery devices associated with adverse incidents, not elsewhere classified
CPT/HCPCS: 49423; 90471; 90686; 90732; C1729; G0008; G0009; J3010; Q9967

== ENCOUNTER 2021-05-16 07:59 | Outpatient (CLI) | payer OTHER ==
[2021-05-16] MEDS ORDERED: Iopamidol 370 76% 100 ML VIAL ONE (09:26)
== END 2021-05-16 08:00 | disposition home or self-care (01) ==
LOC: CT 07:59
PROVIDERS: ATTEND Surgery
DX: S31.139A Puncture wound of abdominal wall without foreign body, unspecified quadrant without penetration into peritoneal cavity, initial encounter (principal); Z90.49 Acquired absence of other specified parts of digestive tract
CPT/HCPCS: 74177; Q9967

== ENCOUNTER 2021-05-18 07:49 | Day surgery (SDC) | payer OTHER ==
[2021-05-18] MEDS ORDERED: Fentanyl 100 MCG/2 ML VIAL ONE (09:02)
[2021-05-18 11:10] VITALS: BP 130/79; TEMP 98.2
[2021-05-18] MEDS ORDERED: Iopamidol 300 61% 50 ML VIAL FS ONE (12:20)
== END 2021-05-18 10:40 | disposition home or self-care (01) ==
LOC: SPEC 07:49
PROVIDERS: ATTEND Surgery
PROC: 0W2FX0Z Change Drainage Device in Abdominal Wall, External Approach (ICD-10-PCS; principal; 2021-05-18)
DX: T85.898A Other specified complication of other internal prosthetic devices, implants and grafts, initial encounter (principal); K65.1 Peritoneal abscess; F17.200 Nicotine dependence, unspecified, uncomplicated; H46.8 Other optic neuritis; F10.10 Alcohol abuse, uncomplicated; Z86.73 Personal history of transient ischemic attack (TIA), and cerebral infarction without residual deficits; Y83.8 Other surgical procedures as the cause of abnormal reaction of the patient, or of later complication, without mention of misadventure at the time of the procedure
CPT/HCPCS: 49423; 75984; C1729; J3010; Q9967

== ENCOUNTER 2021-07-30 07:16 | Outpatient (CLI) | payer OTHER | END 2021-07-30 07:17 | disposition home or self-care (01) | LOC: CT 07:16 | PROVIDERS: ATTEND Surgery | DX: T14.8XXA Other injury of unspecified body region, initial encounter (principal); W34.00XA Accidental discharge from unspecified firearms or gun, initial encounter | CPT/HCPCS: 74177 ==

== ENCOUNTER 2022-01-28 20:03 | Emergency (ER) | payer OTHER ==
[2022-01-28] MEDS ORDERED: Ketorolac Tromethamine 30 MG/ML VIAL ONE (22:36)
[2022-01-28] MEDS ORDERED: Cyclobenzaprine 10 MG TAB ONE (22:36)
== END 2022-01-28 23:26 | disposition home or self-care (01) ==
LOC: ERS 20:03
DX: M62.830 Muscle spasm of back (principal); M54.2 Cervicalgia
CPT/HCPCS: 71045; 72125; 72128; 96372; J1885